=== PATIENT | male | born 1945 | race Caucasian/White ===

== ENCOUNTER 2021-12-12 10:13 | Inpatient (IN) ==
[2021-12-12] MEDS ORDERED: 0.9 % SODIUM CHLORIDE 1,000 ML IV ONE ×2 (10:40→13:53)
--- NOTE | 2021-12-12 10:40 | Emergency Department Note ---
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 He states he has had uncontrollable diarrhea for the last 3 days. He was in his wheelchair trying to cross over to a bedside commode when he landed on the ground. He states he has coccygeal pain. He denies fever, chills, body aches, nausea, vomiting, chest pain, chest pressure or shortness of breath. He denies dysuria, urgency or frequency. He states he is only had diarrhea that is been on melanotic. He has not had any change in diet and states he has not been around any contaminated water sources. He lives at home alone. She called EMS to help him get back in his wheelchair however they stated he was covered in feces as well as his bed and floor. They brought him here for further evaluation. They state he is living in rough living conditions and he states he is open to placement in a skilled facility if this can be arranged. He has no other complaints other than a sore coccyx and diarrhea. Patient has had no primary care for several years. The only medication he takes is a daily aspirin. He has not been on any medication for his diabetes or glucose control. He states he is generally a hermit and stays at home. Related Data Home Medications Medication Instructions Recorded Confirmed Adult Multi plus [place]-3 600 mg PO QDAY 12/12/21 12/12/21 Adults Multivitamin 1 tab PO QDAY 12/12/21 12/12/21 ascorbate calcium (vitamin C) 500 500 mg PO QDAY 12/12/21 12/12/21 mg tablet aspirin 650 mg PO QHS 12/12/21 12/12/21 biotin 500 mcg capsule 500 mcg PO QDAY 12/12/21 12/12/21 calcium carbonate 600 mg-vitamin 1 tab PO QDAY 12/12/21 12/12/21 D3 5 mcg (200 unit) tablet vit C-vit O-[id number]-emedpbiv-omega 1 cap PO QDAY 12/12/21 12/12/21 3 100 mg-15 unit-2 mg-100 mg capsule Allergies Allergy/AdvReac Type Severity Reaction Status Date / Time No Known Drug Allergies Allergy Verified 12/12/21 10:14 Review of Systems ROS ROS Narrative: Narrative: All systems ED: reviewed and negative except as stated. PFSH Narrative Patient History Narrative: Narrative: Medical/Surgical/Family History All Active Problems (Updated 12/12/21 @ 20:51 by Dar Baron PA-C) BPH (benign prostatic hyperplasia) (Acute) Chronic renal insufficiency, stage III (moderate) (Acute) Cardiomyopathy (Acute) Aortic stenosis (Acute) Diabetic polyneuropathy associated with type 2 diabetes mellitus (Acute) PAD (peripheral artery disease) (Acute) Diarrhea (Acute) Right above-knee amputee (Acute) T2DM (type 2 diabetes mellitus) (Acute) Diabetic nephropathy associated with type 2 diabetes mellitus (Acute) Anemia, macrocytic (Acute) Atrial fibrillation (Acute) Exam Narrative Narrative: Narrative: Gen: Patient is pale but in no acute distress and greets me as an of the room Eyes: PERRL, no conjunctival injection , and symmetrical lids. Sclerae non i cteric HENMT: Normocephalic Atraumatic head, external nose and ears. Moist MM. No teeth present Neck: Symmetric, trachea midline, CVS: +S1/S2, No murmurs or gallops. Radial pulses 2+ and equal bilat. No swelling RESP: Unlabored respiratory effort . Clear to auscultation bilaterally (CTAB). No noted wheezes rales or ronchi. GI: Nontender/Nondistended (NTND), No focal tenderness large umbilical hernia that is nontender MSK: Right below the knee amputation with stump in good condition. Chronic va scular changes of the left lower extremity with crusting and scabbing and multiple ulcers that look noninfected at this time. Patient has no sensation of the foot it is cool but perfusing with normal cap refill. Skin: Dry with lesions throughout the lower extremity cap refill less than 2. Neuro: No focal neurological deficit Psych: Awake, Alert, & Oriented (AAO) x3. Appropriate mood and affect . General Limitations: no limitations Course Vital Signs Vital signs: Vital Signs Temperature 98.6 F 12/12/21 10:16 Pulse Rate 140 H 12/12/21 10:16 Respiratory Rate 18 12/12/21 10:16 Blood Pressure 118/77 12/12/21 10:16 Pulse Oximetry (%) 97 12/12/21 10:16 Oxygen Delivery Method 12/12/21 10:16 Temperature 98.5 F 12/12/21 17:37 Pulse Rate 115 H 12/12/21 17:37 Respiratory Rate 15 12/12/21 20:10 Blood Pressure 104/77 12/12/21 16:20 Pulse Oximetry (%) 96 12/12/21 17:37 Oxygen Delivery Method 12/12/21 12:00 [facility] MDM Narrative Medical decision making narrative: Narrative: Patient is tachycardic but otherwise has normal vital signs I believe this is secondary to dehydration from diarrhea. He will be evaluated with a CBC, as well as a CMP to evaluate for electrolyte abnormality. He is pale and his H&H will be closely reviewed. Patient will also be swabbed for flu and COVID which could be the cause of diarrhea. Patient denies any fever abdominal pain, chest pain, chest pressure he also have an EKG and UA obtained. The social worker assistant wi ll meet with him to discuss placement options and see if we can arrange this for him. Patient will receive a liter of fluid for hydration. Patient's x-ray shows his aorta and common iliacs are heavily calcified his foot is cold but is still perfusing I would like to get an arterial ultrasound to further evaluate his distal blood flow. CBC: Unremarkable CMP: Acute kidney injury with renal insufficiency and creatinine of 2-1/2. Otherwise rather unremarkable Flu: Negative COVID: Negative EKG: Atrial fibrillation at a rate of 130 bpm no evidence of acute ischemia at this time. Arterial ultrasound: mid SFA and mid MELISSA no flow, likely collateral flow. everything with monophasic to dampened waveform throughout IMPRESSION: 1. Mild fusiform aneurysm infrarenal abdominal aorta maximal diameter 3.4 cm. Aorta is patent. 2. Left common iliac, external iliac and common femoral arteries are patent. The superficial femoral artery is occluded proximally with collateral reconstitution of the distal SFA. Anterior tibial artery is occluded at its midportion. There are multiple stenoses throughout the peroneal and posterior tibial artery ranging up to 70%. Interpreted and Authenticated by: Guanako Muñiz 12/12/21 [id number] Substation Mechanic: UA: Pt not yet provided Coccyx and sacrum x-ray:IMPRESSION: No fracture identified. Borderline aneurysmal enlargement infrarenal abdominal aorta. Suggest: Follow up ultrasound in one year Interpreted and Authenticated by: Guanako Muñiz 12/12/21 [facility]: Metoprolol Succinate 25mg BID, Echo, will come by and evaluate him Around 4pm Patient is in generally poor condition has not been taking medication, has no primary care lives alone cannot care for himself and is in squalor conditions. He has new onset A. fib with RVR, he needs placement to a skilled facility. Cardiology is already consulted on board. Flu and COVID were negative. He has been stable since he has been here. CBC is unremarkable, there is no white count, patient does not have a significant anemia. Patient has severe peripheral arterial disease as evidenced by the x-ray and arterial ultrasound. Mid SFA and mid MELISSA have no flow but he does likely have collateral flow but has monophasic to dampened waveforms throughout. He will need a vascular surgery or an interventional radiology referral after admission here. Dr Briseno Hospitalist: Requested 10 mg push of Cardizem and he will be down to evaluate the patient. Lab Data Result diagrams: 12/12/21 10:37 12/12/21 10:37 Labs: Lab Results 12/12/21 12/12/21 12/12/21 Range/Units 10:37 10:37 10:37 WBC 11.1 H (4.5-11.0) K/mcL RBC 3.58 L (4.63-6.08) M/mcL Hgb 11.3 L (13.7-17.5) g/dL Hct 36.1 L (40.1-51.0) % MCV 100.8 H (80.0-100.0) fL MCH 31.6 (26.0-34.0) pg MCHC 31.3 (31.0-36.0) g/dL RDW 15.0 H (11.5-14.5) % Plt Count 176 (140-440) K/mcL MPV 11.9 (8.8-12.5) fL Immature Gran % (Auto) 0.2 (0.0-0.5) % Neut % (Auto) 81.1 H (38.0-78.0) % Lymph % (Auto) 10.2 L (15.5-49.0) % Beckham % (Auto) 6.9 (1.0-12.0) % Eos % (Auto) 1.2 (0.0-7.0) % Baso % (Auto) 0.4 (0.0-2.0) % Lymph # (Auto) 1.13 L (1.50-4.80) K/mcL Beckham # (Auto) 0.77 (0.10-0.90) K/mcL Eos # (Auto) 0.13 (0.00-0.70) K/mcL Baso # (Auto) 0.04 (0.00-0.30) K/mcL Immature Gran # 0.02 (0.00-0.05) K/mcl Absolute Neutrophils 9.01 H (1.80-8.00) K/mcL Sodium 135 (133-145) mmol/L Potassium 4.1 (3.3-5.1) mmol/L Chloride 105 (96-108) mmol/L Carbon Dioxide 16 L (22-30) mmol/L Anion Gap 14.0 (8.0-16.0) BUN 22 (8-23) mg/dL Creatinine 2.5 H (0.7-1.2) mg/dL GFR Calculation 24 Glucose 145 H (70-105) mg/dL Calcium 8.4 L (8.6-10.4) mg/dL Total Bilirubin 0.4 (0.1-1.0) mg/dL AST 24 (<40) U/L ALT 25 (<40) U/L Alkaline Phosphatase 111 (39-117) U/L Total Creatine Kinase 220 H (24-195) U/L Total Protein 5.8 L (5.9-8.4) gm/dL Albumin 3.0 L (3.2-5.2) gm/dL Globulin 2.8 (2.2-3.7) gm/dL Albumin/Globulin Ratio 1.1 (1.0-2.3) ED POC Tests ED POC Tests: АЛЕКСАНДР - Influenza A Negative АЛЕКСАНДР - Influenza B Negative АЛЕКСАНДР - SARS Antigen Negative Discharge Plan Patient/Caregiver Discharge Instructions Pt seen by DOOR LINER/PA only: Yes Clinical Impression: Atrial fibrillation Patient Disposition: Xfer As Inpt ([facility]) Discharge Date/Time: 12/12/21 17:03
[2021-12-12 11:29] LABS: Basophils # (Auto) 0.04 K/mcL (0.00-0.30); Basophils % (Auto) 0.4 % (0.0-2.0); Eosinophils # (Auto) 0.13 K/mcL (0.00-0.70); Eosinophils % (Auto) 1.2 % (0.0-7.0); Hematocrit 36.1 % (40.1-51.0); Hemoglobin 11.3 g/dL (13.7-17.5); Lymphocytes # (Auto) 1.13 K/mcL (1.50-4.80); Lymphocytes % (Auto) 10.2 % (15.5-49.0); Mean Cell Volume 100.8 fL (80.0-100.0); Mean Corpuscular HGB Conc 31.3 g/dL (31.0-36.0); Mean Platelet Volume 11.9 fL (8.8-12.5); Monocytes # (Auto) 0.77 K/mcL (0.10-0.90); Monocytes % (Auto) 6.9 % (1.0-12.0); Neutrophils % (Auto) 81.1 % (38.0-78.0); Platelet Count 176 K/mcL (140-440); RBC 3.58 M/mcL (4.63-6.08); WBC 11.1 K/mcL (4.5-11.0)
[2021-12-12] MEDS ORDERED: METOPROLOL SUCCINATE 25 MG TAB.XL.24H PO ONE (11:29)
[2021-12-12 11:42] LABS: ALT/SGPT 25 U/L (<40); AST/SGOT 24 U/L (<40); Albumin/Globulin Ratio 1.1 (1.0-2.3); Alkaline Phosphatase 111 U/L (39-117); Bilirubin,Total 0.4 mg/dL (0.1-1.0); Blood Urea Nitrogen 22 mg/dL (8-23); Calcium 8.4 mg/dL (8.6-10.4); Carbon Dioxide 16 mmol/L (22-30); Chloride 105 mmol/L (96-108); Globulin 2.8 gm/dL (2.2-3.7); Glomerular Filtration Rate 24; Glucose 145 mg/dL (70-105)
--- NOTE | 2021-12-12 12:37 | XRay Report ---
CLINICAL INFORMATION: Trauma COMPARISON: None. FINDINGS: Sacroiliac and hip joints show mild degeneration.. There is no fracture or osseous abnormality. Heavy atherotic calcification seen in the aortoiliac and femoral arteries. Borderline aneurysmal enlargement of the infrarenal abdominal aorta appreciated: 3 cm uncorrected for magnification. IMPRESSION: No fracture identified. Borderline aneurysmal enlargement infrarenal abdominal aorta. Suggest: Follow up ultrasound in one year Interpreted and Authenticated by: Guanako Muñiz 12/12/21
--- NOTE | 2021-12-12 12:54 | Ultrasound Report ---
CLINICAL INFORMATION: Left leg pain history of diabetes and smoking COMPARISON: None. FINDINGS: See attached sheet. IMPRESSION: 1. Mild fusiform aneurysm infrarenal abdominal aorta maximal diameter 3.4 cm. Aorta is patent. 2. Left common iliac, external iliac and common femoral arteries are patent. The superficial femoral artery is occluded proximally with collateral reconstitution of the distal SFA. Anterior tibial artery is occluded at its midportion. There are multiple stenoses throughout the peroneal and posterior tibial artery ranging up to 70%. Interpreted and Authenticated by: Guanako Muñiz 12/12/21
[2021-12-12] MEDS ORDERED: DILTIAZEM 25 MG/5 ML VIAL IV ONE (13:32)
--- NOTE | 2021-12-12 13:48 | EKG ---
[facility] Minor Care Test Date: 2021-12-12 Pat Name: Vinicio Knight Department: ED Room: Gender: Male Dependency Case Manager: MALCOLM : 1945 Requested By: Dar Baron Order Number: [id number] Reading MD: Mulu Emmanuel Measurements Intervals [place] Rate: 130 P: HI: QRS: -6 QRSD: 88 T: 194 QT: 299 QTc: 440 Interpretive Statements Atrial fibrillation with ventricular ectopic beats Low voltage, extremity leads Possible septal infarct age indeterminate Nonspecific repol abnormality, diffuse leads Electronically Signed On 12-12-2021 13:47:48 PDT by Mulu Emmanuel /store/M0/[id number]/[id number]
--- NOTE | 2021-12-12 15:55 | Cat Scan Report ---
CLINICAL INFORMATION: Diarrhea COMPARISON: None. TECHNIQUE: 0.625 mm helical slices were obtained from the mid heart through the subtrochanteric regions. Following reconstruction, 2.5 mm sagittal, coronal and axial reformatted images were processed and reviewed at bone and soft tissue windows.The exam was performed using radiation dose optimization techniques including, but not limited to, automated exposure control, adjustment of the mA and/or kV according to patient size and use of iterative reconstruction technique. FINDINGS: The lung bases show moderate bilateral pleural effusions resulting in subsegmental compressive atelectasis of the posterior lower lobes. The heart is moderately enlarged with very heavy calcific plaque in the coronary arteries. There is also moderate calcification in the aortic valve. Abdominal images show the noncontrasted liver is unremarkable. There are multiple small (greater than 20) stones in the gallbladder neck. Gallbladder wall is slightly thickened which could indicate cholecystitis. Intrahepatic and common bile ducts are normal caliber: CBD is 5 mm. The noncontrasted pancreas and spleen are normal. The aorta is normal diameter but is riddled with extremely heavy calcific plaque. Left kidney is at lower limits of normal in size: 9 cm. Right kidney is normal size 10.3 cm. Scattered low-attenuation lesions throughout the kidneys also likely cysts. They range up to 3 cm the parapelvic region of the left kidney. Consider ultrasound to be certain all are cysts. The upper collecting systems and ureters are grossly normal. Pelvic images show mild prostate enlargement: 4 cm diameter. Mild diffuse wall thickening urinary bladder suggests chronic bladder outlet narrowing due to enlarged prostate. Multiple sigmoid diverticula appreciated but no evidence of diverticulitis. The remaining large bowel, retrocecal appendix, small bowel and stomach are normal. A 7 cm periumbilical hernia contains only mesenteric fat. There is mild edema in the hernia sac. There is also mild edema throughout the retroperitoneum and mesenteric fat. Edema throughout the abdomen and pelvis subcutaneous fat. Bone windows show degeneration lumbar spine, but no focal osseous lesion. IMPRESSION: 1. Moderate bilateral pleural effusion resulting in compressive atelectasis of the adjacent posterior lower lobes. There is also moderate edema throughout the mesenteric, retroperitoneal fat and the subcutaneous fat of the abdomen and pelvis. This is typically due to chronic congestive heart failure. Please correlate with chest x-ray. 2. Cholelithiasis. Mild wall thickening of the gallbladder suggests the possibility of associated cholecystitis. 3. Multiple low-attenuation lesions within the kidney are all likely cysts. Consider renal ultrasound. 4. Heavy calcific plaque in the abdominal aorta with mild ectasia in the infrarenal segment. 5. 7 cm periumbilical hernia containing only mesenteric fat. Edema in the hernia sac could indicate inflammation or ischemia. Please correlate with pain in this region. 6. Sigmoid diverticulosis, but no evidence of diverticulitis. 7. Mild prostate enlargement Interpreted and Authenticated by: Guanako Muñiz 12/12/21
--- NOTE | 2021-12-12 15:57 | Internal Med History&Physical ---
HPI History of Present Illness Patient information: Note initiated : 12/12/21 at 3:49 pm Service Date, if different from initiated Date: [] Patient: Vinicio Knight a 76 y/o M admitted on for Weakness, Failure to thrive. Chief Complaint: [weakness] Chief complaint: weakness History of present illness: Mr. Knight is a 76 year old M history of type 2 diabetes, right-sided AKA, presenting with weakness. He has been having diarrhea for 3 days and earlier today at around 10 AM when he was trying to get up from the wheelchair, the wheelchair tipped to the cushion and he felt to the ground. He was unable to get up from the ground. He did not pass out no loss of consciousness. Denies any chest pain or palpitations or shortness of breath. He called EMS to be sent to our ED for further evaluation and treatments. Vital sign significant for tachycardia with heart rate in the 130s, and atrial fibrillation's. Soft blood pressure as low as 83/68 mmHg. Labs significant for a mildly elevated WBC of 11.1. H&H 11.1 and 36.1, respectively. Serum creatinine level 2.5 unknown baseline. Glucose level 145. Status post IV Lopressor and IV Cardizem pushes in the ED, respectively. Current heart rate lingering between 80s and 100s beats per minute. Constitutional Constitutional: Present weakness; Absent chills, excessive sweating, fatigue or fever(s) EENT Eyes: Absent blurry vision, change in vision, loss of vision or other visual disturbances Ears: Absent decreased hearing or tinnitus Nose, mouth and throat: Absent abnormal hearing, dry mouth, headache(s), nasal congestion or sore throat Cardiovascular Cardiovascular: Absent chest pain, chest pain at rest, edema, irregular heart rhythm or palpatations Respiratory Respiratory: Absent cough, dyspnea or wheezing Gastrointestinal Gastrointestinal: Present diarrhea; Absent abdominal pain, constipation, nausea or vomiting Musculoskeletal Musculoskeletal: Absent back pain, deformity, limited range of motion, muscle cramps, muscle weakness or numbness Integumentary Integumentary: Absent lesions, rash or wounds Neurological Neurological: Absent focal weakness, headache(s) or numbness Psychiatric Psychiatric: Absent anxiety, depression or hallucinations PFSH PFSH All Active Problems (Updated 12/12/21 @ 16:06 by Delbert Briseno MD) Diabetic polyneuropathy associated with type 2 diabetes mellitus (Acute) PAD (peripheral artery disease) (Acute) Diarrhea (Acute) Right above-knee amputee (Acute) T2DM (type 2 diabetes mellitus) (Acute) Diabetic nephropathy associated with type 2 diabetes mellitus (Acute) Anemia, macrocytic (Acute) Atrial fibrillation (Acute) MEDS/ALLERGIES Home Medications and Allergies Home Medications Medication Instructions Recorded Confirmed Type No Known Home Meds 12/12/21 12/12/21 History Allergies Allergy/AdvReac Type Severity Reaction Status Date / Time No Known Drug Allergies Allergy Verified 12/12/21 10:14 EXAM Constitutional Vitals: Temp Pulse Resp BP Pulse Ox O2 Del Method 37.0 C 115 H 19 91/70 98 12/12/21 10:16 12/12/21 15:20 12/12/21 15:20 12/12/21 15:20 12/12/21 15:20 12/12/21 12:00 General appearance: cooperative and no acute distress Head Head exam: Present atraumatic and normocephalic Eye Eye exam: Present EOMI and PERRL ENT ENT exam: Present mucous membranes moist, normal exam and normal external ear exam Neck Neck exam: Present normal inspection; Absent lymphadenopathy, tenderness or thyromegaly Respiratory Respiratory exam: Absent accessory muscle use, respiratory distress or wheezes Cardiovascular Cardiovascular exam: Present irregular rhythm and tachycardia; Absent JVD GI/Abdominal GI/Abdominal exam: Present normal bowel sounds and soft; Absent organomegaly or tenderness Rectal Rectal exam: Present deferred Extremities Exam Extremities exam: Present full ROM and normal capillary refill; Absent normal inspection or tenderness Additional comments: Right AKA Neurological Exam Neurological exam: Present alert, CN II-XII intact and oriented X3; Absent motor sensory deficit Psychiatric Psychiatric exam: Present normal affect and normal mood; Absent anxious or depressed Skin Skin exam: Present dry, erythema and rash; Absent intact Additional comments: Of traumatic left lower legs with multiple ulcers in different stages of healing DATA Data Completed and Pending Labs: Labs from last 24 hours 12/12/21 12/12/21 10:37 10:37 WBC 11.1 H RBC 3.58 L Hgb 11.3 L Hct 36.1 L MCV 100.8 H MCH 31.6 MCHC 31.3 RDW 15.0 H Plt Count 176 MPV 11.9 Immature Gran % (Auto) 0.2 Neut % (Auto) 81.1 H Lymph % (Auto) 10.2 L Elbert % (Auto) 6.9 Eos % (Auto) 1.2 Baso % (Auto) 0.4 Lymph # (Auto) 1.13 L Elbert # (Auto) 0.77 Eos # (Auto) 0.13 Baso # (Auto) 0.04 Immature Gran # 0.02 Absolute Neutrophils 9.01 H Sodium 135 Potassium 4.1 Chloride 105 Carbon Dioxide 16 L Anion Gap 14.0 BUN 22 Creatinine 2.5 H GFR Calculation 24 Glucose 145 H Calcium 8.4 L Total Bilirubin 0.4 AST 24 ALT 25 Alkaline Phosphatase 111 Total Protein 5.8 L Albumin 3.0 L Globulin 2.8 Albumin/Globulin Ratio 1.1 A/P Assessment and plan (1) Atrial fibrillation: Status: Acute (2) Anemia, macrocytic: Status: Acute (3) Diabetic nephropathy associated with type 2 diabetes mellitus: Status: Acute (4) T2DM (type 2 diabetes mellitus): Status: Acute (5) Right above-knee amputee: Status: Acute (6) Diarrhea: Status: Acute (7) PAD (peripheral artery disease): Status: Acute (8) Diabetic polyneuropathy associated with type 2 diabetes mellitus: Status: Acute Narrative A/P Narrative: Assessment and Plans: 1. Atrial fibrillation: Inpatient PCU with telemetry [id number] score of 4, Eliquis Cardizem SR 30mg PO QID Lopressor 5mg IV q5min PRN HR>120bpm, hold if SBP<90 and/or DBP<50mmHg 2D echocardiogram 2. Peripheral arterial disease: Need vascular surgery outpatient follow up for elective angiography and any other indicated procedures 3. T2DM with associated polyneuropathy and nephropathy: HgA1c Hold any oral hypoglycemics Accu Chek AC HS Insulin Lispor SSI AC HS Hypoglycemia protocol Diabetic diet Avoid nephrotoxic agents NS@100cc/hr CMP in the morning to trend kidney functions 4. Diarrhea: C diff toxin PCR CT abdomen pelvis w/o NS@100cc/hr for rehydration purposes 5. Anemia associated with chronic kidney disease: cbc w/ auto diff daily to trend H/H GI ppx: not currently indicated DVT ppx: Eliquis Code status: Full Prognosis: guarded Disposition: inpatient PCU; PT OT Time Spent With Patient Time: Total time spent is greater than 50% in coordination of care (as documented) at patient's floor/unit and/or counseling patient: Total time spent with greater than 50% in coordination of care (as documented) at patient's floor/unit and/or counseling patient:: 50 - 70 minutes
--- NOTE | 2021-12-12 16:40 | XRay Report ---
CLINICAL INFORMATION: Atrial fibrillation shortness of breath COMPARISON: 04/09/2010 TECHNIQUE: Portable FINDINGS: The heart is mildly enlarged. Mediastinum is unremarkable. Pulmonary vessels are mildly distended and there is mild residual edema throughout both lungs. Moderate bilateral pleural effusions noted with moderate bibasilar airspace disease likely atelectasis. IMPRESSION: Moderate CHF Moderate bilateral pleural effusions with moderate bibasilar airspace disease likely atelectasis Interpreted and Authenticated by: Guanako Muñiz 12/12/21
--- NOTE | 2021-12-12 16:41 | Cardiology Consult Note ---
HPI History of Present Illness Patient information: Note initiated : 12/12/21 at 3:35 pm Service Date, if different from initiated Date Patient: Vinicio Knight a 76 y/o M admitted on for Weakness, Failure to thrive. Chief Complaint: [atrial fibrillation] This is a very pleasant 76 year old white male admitted through the for weakness and diarrhea. He was suffered from general weakness for several weeks and suddenly experienced explosive diarrhea intermittently over the last several days. He had a history of uncontrolled type II diabetes and is currently not managed on any medication and is not seeing a primary. 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 Recent doppler done today revealed multiple 70% lesion to left lower extremities arterial vessels. He fell when transferring himself from the bed to a commode. He does have a prosthesis for his right BKA but has not been using it for ambulation because he needs another person to help. He was noted to be in atrial fibrillation with rates as high as 140 beats per minutes. His creatinine is 2.4, but BUN is normal. He was given IV fluids and one dose of metoprolol at 25mg, his blood pressures have running 100 systolic. His preliminary echo shows an EF of 20% with global hypokinesis and moderate to severe aortic stenosis, with moderate mitral regurgitation. Patient is unaware of any history of afib, aortic stenosis or renal failure. He has a had a problem with his prostate and struggles with urination and must urinate small amounts. He denies any history of palpitations, chest pain, or syncope. He has not describe any orthopnea, peripheral edema, of dizziness. He has no history of NE or stroke. He does not know his lipid status. Chief complaint: atrial fibrillation, aortic stenosis, and systolic heart failure History of present illness: Mr. Knight is a 76 year old M Constitutional Constitutional: Present anorexia, fatigue, frequent falls, lethargy, malaise, weakness and weight loss; Absent chills, daytime sleepiness, excessive sweating, fever(s), headache(s), night sweats or weight gain EENT Eyes: Absent blind spots, blurry vision, change in vision, diplopia or floaters Nose, mouth and throat: Absent dizziness, dysphagia or headache(s) Cardiovascular Cardiovascular: Present leg ulcers; Absent chest pain, chest pain at rest, dyspnea, dyspnea on exertion, edema, leg edema, lightheadedness, orthopnea, palpatations, paroxysmal nocturnal dyspnea, pedal edema, rapid heart rate or slow heart rate Respiratory Respiratory: Present chest congestion; Absent cough, dyspnea, hemoptysis, dysp latrice on exertion, wheezing or excessive phlegm production Gastrointestinal Gastrointestinal: Present cramping, diarrhea, dyspepsia and loose stools; Absent abdominal pain, belching, coffee ground emesis, dysphagia, heartburn, hematemesis, melena, nausea or vomiting Genitourinary Genitourinary: change in urinary stream, difficulty urinating and flank pain Musculoskeletal Musculoskeletal: Present abnormal gait, arthralgias, muscle cramps, muscle weakness, myalgias, numbness and tingling Integumentary Integumentary: Present bleeding lesions, dry skin and lesions Neurological Neurological: Present abnormal gait, paresthesias, sensory deficit and weakness; Absent abnormal speech, confusion, dizziness, headache(s), lack of coordination, memory loss or syncope Psychiatric Psychiatric: Absent anxiety, hallucinations or irritability Endocrine Endocrine: Present fatigue; Absent palpitations Hematologic/Lymphatic Hematologic/Lymphatic: Absent easy bleeding PFSH PFSH All Active Problems (Updated 12/12/21 @ 16:41 by ERYN Zaldivar) BPH (benign prostatic hyperplasia) (Acute) Chronic renal insufficiency, stage III (moderate) (Acute) Cardiomyopathy (Acute) Aortic stenosis (Acute) Diabetic polyneuropathy associated with type 2 diabetes mellitus (Acute) PAD (peripheral artery disease) (Acute) Diarrhea (Acute) Right above-knee amputee (Acute) T2DM (type 2 diabetes mellitus) (Acute) Diabetic nephropathy associated with type 2 diabetes mellitus (Acute) Anemia, macrocytic (Acute) Atrial fibrillation (Acute) MEDS/ALLERGIES Home Medications and Allergies Home Medications Medication Instructions Recorded Confirmed Type No Known Home Meds 12/12/21 12/12/21 History Allergies Allergy/AdvReac Type Severity Reaction Status Date / Time No Known Drug Allergies Allergy Verified 12/12/21 10:14 Physical Examination Vital Signs Vital Signs: Temp Pulse Resp BP Pulse Ox O2 Del Method 98.6 F 115 H 19 91/70 98 12/12/21 10:16 12/12/21 15:20 12/12/21 15:20 12/12/21 15:20 12/12/21 15:20 12/12/21 12:00 Physical Examination General: Present Cachectic HEENT: Present Pallor, PERRL and Normocephaly Neck: Present Supple Neck and No Bruit; Absent No JVD/HJR, Adenopathy or No Lymphadenopathy Cardiac: Present Irregularly Regular, Systolic Murmur, Gallop and PMI (PMI laterally displaced) Lungs: Present Decreased Breath Sounds Neuro: Present Cranial Nerve 2-12 Intact, Numbness and Sensory Function Intact Abdomen: Present Soft, Active Bowel Sounds and No Masses Skin: Present Suspicious Lesions and Other (multiple healing ulcers left lower extemity with delayed capillary refill, absent pulses Right BKA) Extremities: Present Cold and Capillary Refill; Absent +1 Edema or Clubbing Results Labs and Meds Result diagrams: 12/12/21 10:37 12/12/21 10:37 Lab results: Cardiac Enzymes 12/12/21 Range/Units 10:37 AST 24 (<40) U/L CBC 12/12/21 Range/Units 10:37 WBC 11.1 H (4.5-11.0) K/mcL RBC 3.58 L (4.63-6.08) M/mcL Hgb 11.3 L (13.7-17.5) g/dL Hct 36.1 L (40.1-51.0) % Plt Count 176 (140-440) K/mcL Lymph # (Auto) 1.13 L (1.50-4.80) K/mcL [place] # (Auto) 0.77 (0.10-0.90) K/mcL Eos # (Auto) 0.13 (0.00-0.70) K/mcL Baso # (Auto) 0.04 (0.00-0.30) K/mcL Comprehensive Metabolic Panel 12/12/21 Range/Units 10:37 Sodium 135 (133-145) mmol/L Potassium 4.1 (3.3-5.1) mmol/L Chloride 105 (96-108) mmol/L Carbon Dioxide 16 L (22-30) mmol/L BUN 22 (8-23) mg/dL Creatinine 2.5 H (0.7-1.2) mg/dL Glucose 145 H (70-105) mg/dL Calcium 8.4 L (8.6-10.4) mg/dL AST 24 (<40) U/L ALT 25 (<40) U/L Alkaline Phosphatase 111 (39-117) U/L Total Protein 5.8 L (5.9-8.4) gm/dL Albumin 3.0 L (3.2-5.2) gm/dL Intake and Output 12/12/21 12/12/21 12/12/21 05:59 13:59 21:59 Intake Total 1000 Balance 1000 Intake: IV 1000 Sodium Chloride 0.9% 1,000 ml @ 1000 Wide Open IV [facility] Rx#: [id number] Other: Weight 65.771 kg Patient Weight 12/13/21 05:59 Weight 65.771 kg Imaging and Cardiology Imaging Narrative: Narrative: Echo: pending EKG results: report reviewed EKG interpretations EKG Interpretation: 12 lead EKG shows atrial fibrillation with RVR with loss of R wave in anterior leads and poor wave progression with nonspecific EKG changes A/P Assessment and plan (1) Aortic stenosis: Status: Acute (2) Cardiomyopathy: Status: Acute (3) Chronic renal insufficiency, stage III (moderate): Status: Acute (4) BPH (benign prostatic hyperplasia): Status: Acute Narrative A/P Narrative: 1. atrial fibrillation with RVR 2. renal insufficiency- possible acute on chronic 3. Aortic stenosis- moderate to severe 4. mitral regurgitation 5. chronic systolic heart failure-likely a combination related to valvular heart disease and tachycardia mediated 6. poorly controlled diabetes 7. peripheral vascular disease with poor healing ulcer left leg and prior Right BKA 8. BPH Plan: start eliquis 2.5mg twice daily doppler of kidneys to evaluate for hydronephosis and possible obstructive uropathy CXR to evaluate for any CHF start metoprolol succinate 12.5 mg q 6 hours for better rate control of atrial fibrillation start high dose statin clinically no signs of decompensated heart failure. will need PT and possible ECF placement. I will be by to see him tomorrow, by then we should have official echocardiogram read. consider stress test to evaluate for ischemia as an outpatient, will schedule him to see Dr. Heredia 3-4 weeks. not sure his candidacy for TAVR. will recheck bmp in a.m. to see if creatinine improves but suspect renal failure is chronic from diabetes and PVD as well as cardiorenal syndrome. Plan of Treatment: metoprolol 12.5mg Q 6 hours. check renal doppler start elqiuis 2.5 twice daily needs PT placement outpatient follow up with Dr. Isaías Heredia consider ischemic work up at a later date Time Spent With Patient Time: Total time spent is greater than 50% in coordination of care (as documented) at patient's floor/unit and/or counseling patient: Total time spent with greater than 50% in coordination of care (as documented) at patient's floor/unit and/or counseling patient:: 50 - 70 minutes
[2021-12-12] MEDS ORDERED: METOPROLOL SUCCINATE 25 MG TAB.XL.24H PO SCH (17:00)
[2021-12-12] MEDS ORDERED: DEXTROSE 31 GM ORAL.SUSP PO PRN (17:06)
[2021-12-12] MEDS ORDERED: IBUPROFEN 600 MG TABLET PO PRN (17:06)
[2021-12-12] MEDS ORDERED: ACETAMINOPHEN 325 MG TABLET PO PRN (17:06)
[2021-12-12] MEDS ORDERED: IPRATROPIUM/ALBUTEROL 3 ML AMPUL.NEB NEB PRN (17:06)
[2021-12-12] MEDS ORDERED: ONDANSETRON 4 MG/2 ML VIAL IV PRN (17:06)
[2021-12-12] MEDS ORDERED: DEXTROSE 50% 50 ML VIAL IV PRN (17:06)
[2021-12-12] MEDS ORDERED: METOPROLOL TARTRATE 5 MG/5 ML VIAL IV PRN (17:06)
[2021-12-12] MEDS ORDERED: oxyCODONE HCL 5 MG TABLET PO PRN (17:06)
[2021-12-12] MEDS: DILTIAZEM 30 MG TABLET PO SCH ×2 (17:25→20:46)
[2021-12-12] MEDS: 0.9 % SODIUM CHLORIDE 1,000 ML IV SCH (17:25)
[2021-12-12] MEDS: INSULIN LISPRO 1 UNIT/0.01 ML UNIT SQ SCH ×2 (17:29→20:47)
[2021-12-12] MEDS: APIXABAN 5 MG TABLET PO SCH (20:46)
[2021-12-12] MEDS ORDERED: APIXABAN 5 MG TABLET PO SCH (21:00)
[2021-12-12] MEDS: traZODone HCL 50 MG TABLET PO PRN (21:00)
[2021-12-12] MEDS: 0.9 % SODIUM CHLORIDE 10 ML SYRINGE IV SCH (22:45)
[2021-12-13] MEDS: 0.9 % SODIUM CHLORIDE 1,000 ML IV SCH ×2 (03:27→13:39)
--- NOTE | 2021-12-13 03:42 | Ultrasound Report ---
CLINICAL INFORMATION: Low attenuation lesions on CT evaluate for cysts COMPARISON: Abdomen and pelvic CT 12/12/2021 FINDINGS: Right kidney is mildly atrophic spanning 8.4 x 5.8 cm. Left kidney is normal size: 10.3 x 5.7 cm. Both kidneys are mildly hyperechoic. Multiple cysts are widely disseminated throughout both kidneys. The largest 3.6 cm and the superior parapelvic region of the left kidney. There are no solid masses two suggest renal cell carcinoma. No hydronephrosis or stone. Urinary bladder volume 134 cc. No focal bladder lesions. Patient was unable to void. IMPRESSION: 1. Multiple cysts throughout both kidneys. No solid lesions. 2. Mild atrophy of the right kidney. Left kidney normal. There is moderate calcific plaque in the right renal artery on CT. Suspect patient may have renal artery stenosis. CT was performed without contrast, thus this cannot be diagnosed with certainty on that exam. 3. Mildly hyperechoic kidneys compatible with medical renal disease and advanced age Interpreted and Authenticated by: Guanako Muñiz 12/13/21
[2021-12-13] MEDS: 0.9 % SODIUM CHLORIDE 10 ML SYRINGE IV SCH ×3 (05:14→21:34)
[2021-12-13 07:04] LABS: Basophils # (Auto) 0.02 K/mcL (0.00-0.30); Basophils % (Auto) 0.2 % (0.0-2.0); Eosinophils # (Auto) 0.06 K/mcL (0.00-0.70); Eosinophils % (Auto) 0.7 % (0.0-7.0); Hematocrit 34.6 % (40.1-51.0); Hemoglobin 10.6 g/dL (13.7-17.5); Lymphocytes # (Auto) 0.81 K/mcL (1.50-4.80); Lymphocytes % (Auto) 9.4 % (15.5-49.0); Mean Cell Volume 101.2 fL (80.0-100.0); Mean Corpuscular HGB Conc 30.6 g/dL (31.0-36.0); Monocytes # (Auto) 0.69 K/mcL (0.10-0.90); Neutrophils % (Auto) 81.4 % (38.0-78.0); Platelet Count 154 K/mcL (140-440); RBC 3.42 M/mcL (4.63-6.08); Red Cell Distribution Width 15.2 % (11.5-14.5); WBC 8.6 K/mcL (4.5-11.0)
[2021-12-13 07:22] LABS: ALT/SGPT 19 U/L (<40); AST/SGOT 18 U/L (<40); Albumin 2.8 gm/dL (3.2-5.2); Albumin/Globulin Ratio 1.3 (1.0-2.3); Alkaline Phosphatase 95 U/L (39-117); Bilirubin,Total 0.3 mg/dL (0.1-1.0); Blood Urea Nitrogen 25 mg/dL (8-23); Calcium 7.9 mg/dL (8.6-10.4); Carbon Dioxide 15 mmol/L (22-30); Chloride 111 mmol/L (96-108); Globulin 2.2 gm/dL (2.2-3.7); Glomerular Filtration Rate 26; Glucose 139 mg/dL (70-105); Phosphorous 4.5 mg/dL (2.5-4.5)
[2021-12-13] MEDS: INSULIN LISPRO 1 UNIT/0.01 ML UNIT SQ SCH ×4 (07:52→23:36)
[2021-12-13] MEDS ORDERED: FISH OIL 1,000 MG CAPSULE PO SCH (09:00)
[2021-12-13] MEDS ORDERED: BIOTIN 500 MCG PO SCH (09:00)
[2021-12-13] MEDS ORDERED: ASCORBIC ACID 500 MG TABLET PO SCH (09:00)
[2021-12-13] MEDS ORDERED: CALCIUM W/VIT D3 500 MG TABLET PO SCH (09:00)
[2021-12-13] MEDS ORDERED: VIT C VIT E LUTEIN MIN OM PO SCH (09:00)
[2021-12-13] MEDS ORDERED: [UNRECOGNIZED DRUG - OTHER] PO SCH (09:00)
[2021-12-13] MEDS ORDERED: MULTIVIT,THER IRON,CA,FA & MIN 1 TABLET PO SCH (09:00)
[2021-12-13] MEDS ORDERED: FUROSEMIDE 20 MG/2 ML VIAL IV ONE (09:08)
[2021-12-13] MEDS: APIXABAN 5 MG TABLET PO SCH ×2 (09:16→21:33)
[2021-12-13] MEDS: DILTIAZEM 30 MG TABLET PO SCH ×2 (10:15→14:17)
[2021-12-13 13:58] LABS: Appearance,Urine CLEAR (Clear); Bilirubin,Urine Negative (Negative); Color,Urine YELLOW; Culture Indicated,Urine No; Glucose,Urine (UA) Negative (Negative); Ketones,Urine Negative (Negative); Leukocyte Esterase,Urine Negative /uL (Negative); Mucus,Urine FEW /hpf; Nitrate,Urine Negative (Negative); Protein,Urine 30 mg/dL (Negative); Specific Gravity,Urine 1.017 (1.000-1.035); Urine Blood Negative (Negative); Urine Granular Cast 1 /lph (0-0); Urine Hyaline Cast 38 /lph (0-2); Urine RBC 9 /hpf (0-3); Urine Squamous Epithelial Cell 0 /hpf (0-4); Urine Transitional Epi Cells < 1 /hpf (0-2); Urine WBC 6 /hpf (0-4); Urobilinogen,Urine Negative
--- NOTE | 2021-12-13 14:55 | Internal Med Progress Note ---
SUBJECTIVE Subjective Patient information: Note initiated : 12/13/21 at 2:51 pm Service Date, if different from initiated Date: [] Patient: Vinicio Knight a 76 y/o M admitted on 12/12/21 for Weakness, Failure to thrive/ A-Fib and leg wound. Chief Complaint: [] Interval history: Mr. Knight is a 76 year old M history of type 2 diabetes, right-sided AKA, presenting with weakness. He has been having diarrhea for 3 days and earlier today at around 10 AM when he was trying to get up from the wheelchair, the wheelchair tipped to the cushion and he felt to the ground. He was unable to get up from the ground. He did not pass out no loss of consciousness. Denies any chest pain or palpitations or shortness of breath. He called EMS to be sent to our ED for further evaluation and treatments. Vital sign significant for tachycardia with heart rate in the 130s, and atrial fibrillation's. Soft blood pressure as low as 83/68 mmHg. Labs significant for a mildly elevated WBC of 11.1. H&H 11.1 and 36.1, respectively. Serum creatinine level 2.5 unknown baseline. Glucose level 145. Status post IV Lopressor and IV Cardizem pushes in the ED, respectively. Current heart rate lingering between 80s and 100s beats per minute. 12/13: With no major overnight events. Patient is currently rate controlled. Patient denies any chest pain palpitations or shortness of breath. He is comfortable and denies any pain. Convert Cardizem to metoprolol tart Santana 12.5 p.o. every 6 hours. Continue Eliquis. Add Lipitor. Pending echocardiogram report. Pending physical therapy and Occupational Therapy for placement planning. Will need outpatient car diology follow-up. Constitutional Vitals: Vital Signs Temp Pulse Resp BP Pulse Ox O2 Del Method 36.1 C L 78 20 106/71 96 12/13/21 12:01 12/13/21 06:37 12/13/21 12:49 12/13/21 12:49 12/13/21 12:49 12/13/21 04:02 Period Temp Pulse Resp BP Sys/Ocampo Pulse Ox O2 Del Method O2 Flow Rate Last 24 Hr 36.1 C-37.1 C 78-123 01-12 71-112/52-86 90-98 Room Air-Room Air Intake and Output 12/13/21 12/13/21 12/13/21 05:59 13:59 21:59 Intake Total 1000 1000 Output Total 250 Balance 1000 750 Intake & Output: Intake & Output 12/13/21 12/13/21 12/13/21 05:59 13:59 21:59 Intake Total 1000 1000 Output Total 250 Balance 1000 750 Intake: IV 1000 1000 Sodium Chloride 0.9% 1,000 ml @ 1000 1000 100 mls/hr IV .Q10H [facility] Rx#: [id number] Output: Void Amount 250 Other: Urine Appearance Clear Urine Color Dark Eliz Urine Odor Normal Head Head exam: Present atraumatic and normal inspection Eye Eye exam: Present normal appearance ENT ENT exam: Present mucous membranes moist, normal exam and normal external ear exam Neck Neck exam: Present normal inspection Respiratory Respiratory exam: Present normal respiratory exam Cardiovascular Cardiovascular exam: Present irregular rhythm GI/Abdominal GI/Abdominal exam: Present normal bowel sounds Extremities Exam Extremities exam: Present full ROM; Absent normal inspection Additional comments: Right AKA Back Exam Back exam: Present normal inspection Neurological Exam Neurological exam: Present alert and oriented X3 Skin Skin exam: Present intact and warm OBJ DATA Labs CBC & Chem 7: 12/13/21 05:30 12/13/21 05:30 Labs: Abnormal Lab Results 12/13/21 12/13/21 12/13/21 11:37 05:30 05:30 WBC RBC 3.42 L Hgb 10.6 L Hct 34.6 L MCV 101.2 H MCHC 30.6 L RDW 15.2 H Neut % (Auto) 81.4 H Lymph % (Auto) 9.4 L Lymph # (Auto) 0.81 L Absolute Neutrophils Chloride 111 H Carbon Dioxide 15 L BUN 25 H Creatinine 2.3 H Glucose 139 H Calcium 7.9 L Total Creatine Kinase Total Protein 5.0 L Albumin 2.8 L Urine Protein 30 A Urine RBC 9 H Urine WBC 6 H Hyaline Casts 38 H Granular Casts 1 H Urine Mucus Few A 12/12/21 12/12/21 12/12/21 10:37 10:37 10:37 WBC 11.1 H RBC 3.58 L Hgb 11.3 L Hct 36.1 L MCV 100.8 H MCHC RDW 15.0 H Neut % (Auto) 81.1 H Lymph % (Auto) 10.2 L Lymph # (Auto) 1.13 L Absolute Neutrophils 9.01 H Chloride Carbon Dioxide 16 L BUN Creatinine 2.5 H Glucose 145 H Calcium 8.4 L Total Creatine Kinase 220 H Total Protein 5.8 L Albumin 3.0 L Urine Protein Urine RBC Urine WBC Hyaline Casts Granular Casts Urine Mucus Meds: Medications Acetaminophen (Acetaminophen 325 Mg Tablet) 650 mg PO Q6HP PRN; Protocol PRN Reason: Per Pain Protocol/Fever > 101 Albuterol/Ipratropium (Ipratropium/Albuterol 3 Ml Ampul.Neb) 3 ml NEB Q4HRT PRN PRN Reason: Wheezing Apixaban (Apixaban 5 Mg Tablet) 5 mg PO BID MARK Aspirin (Aspirin 325 Mg Enteric Coated Tablet) 650 mg PO QHS MARK Atorvastatin Calcium (Atorvastatin 40 Mg Tablet) 40 mg PO HS MARK Dextrose (Dextrose 50% 50 Ml Vial) 0 ml IV UD PRN PRN Reason: Per Sliding Scale Diagnostic Test (Pha) (Accu-Chek 1 Each Strip) 1 each FS ACHS [facility] Last Admin: 12/13/21 11:40 Dose: 1 each Glucose (Dextrose 31 Gm Oral.Susp) 15 gm PO PRN PRN PRN Reason: Hypoglycemia Sodium Chloride (Sodium Chloride 0.9%) 1,000 mls @ 100 mls/hr IV .Q10H [facility] Last Admin: 12/13/21 13:39 Dose: 100 mls/hr Ibuprofen (Ibuprofen 600 Mg Tablet) 600 mg PO QIDP PRN; Protocol PRN Reason: Per Pain Protocol/Fever > 101 Insulin Human Lispro (Insulin Lispro 1 Unit/0.01 Ml Unit) 0 unit SQ ACHS [facility]; Protocol Last Admin: 12/13/21 11:40 Dose: Not Given Metoprolol Succinate (Metoprolol Succinate 25 Mg Tab.Xl.24h) 12.5 mg PO DAILY [facility] Metoprolol Tartrate (Metoprolol Tartrate 5 Mg/5 Ml Vial) 5 mg IV Q5M PRN PRN Reason: Tachyarrhythmias Metoprolol Tartrate (Metoprolol Tartrate 25 Mg Tablet) 12.5 mg PO QID [facility] Ondansetron HCl (Ondansetron 4 Mg/2 Ml Vial) 4 mg IV Q6HP PRN PRN Reason: Nausea And Vomiting Oxycodone HCl (Oxycodone Hcl 5 Mg Tablet) 5 mg PO Q4HP PRN; Protocol PRN Reason: Per Pain Protocol Pneumococcal Polyvalent Vaccine (Pneumococcal 23-Ermelinda P-Sac Vac 0.5 Ml Syringe) 0.5 ml IM .ONCE ONE Stop: 12/14/21 10:01 Sodium Chloride (0.9 % Sodium Chloride 10 Ml Syringe) 10 ml IV Q8 MARK Last Admin: 12/13/21 14:15 Dose: Not Given Trazodone HCl (Trazodone Hcl 50 Mg Tablet) 25 mg PO HSP PRN PRN Reason: Insomnia Last Admin: 12/12/21 21:00 Dose: 25 mg A/P Assessment and plan (1) Atrial fibrillation: Status: Acute (2) Anemia, macrocytic: Status: Acute (3) Diabetic nephropathy associated with type 2 diabetes mellitus: Status: Acute (4) T2DM (type 2 diabetes mellitus): Status: Acute (5) Right above-knee amputee: Status: Acute (6) Diarrhea: Status: Acute (7) PAD (peripheral artery disease): Status: Acute (8) Diabetic polyneuropathy associated with type 2 diabetes mellitus: Status: Acute Narrative A/P Narrative: Assessment and Plans: 1. Atrial fibrillation: Inpatient PCU with telemetry [id number] score of 4, Eliquis Convert Cardizem to metoprolol tart Santana 12.5 p.o. every 6 hours Lopressor 5mg IV q5min PRN HR>120bpm, hold if SBP<90 and/or DBP<50mmHg 2D echocardiogram results pending 2. Peripheral arterial disease: Lipitor Brianna Outpatient cardiology follow-up 3. T2DM with associated polyneuropathy and nephropathy: HgA1c Hold any oral hypoglycemics Accu Chek AC HS Insulin Lispor SSI AC HS Hypoglycemia protocol Diabetic diet Avoid nephrotoxic agents NS@100cc/hr CMP in the morning to trend kidney functions 4. Diarrhea: C diff toxin PCR CT abdomen pelvis w/o NS@100cc/hr for rehydration purposes 5. Anemia associated with chronic kidney disease: cbc w/ auto diff daily to trend H/H GI ppx: not currently indicated DVT ppx: Eliquis Code status: DNR Prognosis: guarded Disposition: inpatient PCU; PT OT Time Spent With Patient Time: Total time spent is greater than 50% in coordination of care (as documented) at patient's floor/unit and/or counseling patient: Total time spent with greater than 50% in coordination of care (as documented) at patient's floor/unit and/or counseling patient:: 25 - 35 minutes QUALITY VTE Deep Vein Thrombosis/Pulmonary Embolism Present on Admission: No
[2021-12-13] MEDS ORDERED: 0.9 % SODIUM CHLORIDE 1,000 ML IV SCH (15:15)
--- NOTE | 2021-12-13 15:26 | Cardiology Progress Note ---
SUBJECTIVE Subjective Patient information: Note initiated : 12/13/21 at 2:54 pm Service Date, if different from initiated Date: [] Patient: Vinicio Knight 76 y/o M admitted on 12/12/21 for Weakness, Failure to thrive/ A-Fib and leg wound. Chief Complaint: [atrial fibrillation] complaining of stitch in side and wants a cigaretee, but no complaints of orthopnea or shortness of breath. Principal diagnosis: atrial fibrillation Interval history: Patient is in and out of afib with rates controlled on low lose metoprolol. official Echocardiogram results shows an EF of 20% on echocardiogram with global hypokinesis. Moderate aortic insufficiency with more mild aortic stenosis not moderate with moderate to severe mitral regurgitation. Current telemetry shows sinus rhythm with PVCS, creatinine improved to 2.3. chest xray shows moderate pleural effusions, he received 20 of IV lasix, currently on 100cc/hour of IV saline. No diarrhea in the last 24 hours. Some low bps in the 90s but when in the room today BP 135/92. Pertinent ROS: no shortness of breath, dizziness or orthopnea Constitutional Vitals: Vital Signs Temp Pulse Resp BP Pulse Ox O2 Del Method 96.9 F L 78 20 106/71 96 12/13/21 12:01 12/13/21 06:37 12/13/21 12:49 12/13/21 12:49 12/13/21 12:49 12/13/21 04:02 Period Temp Pulse Resp BP Sys/Ocampo Pulse Ox O2 Del Method O2 Flow Rate Last 24 Hr 96.9 F-98.8 F 78-123 01-12 71-112/52-86 90-98 Room Air-Room Air Intake and Output 12/13/21 12/13/21 12/13/21 05:59 13:59 21:59 Intake Total 1000 1000 Output Total 250 Balance 1000 750 Intake & Output: Intake & Output 12/13/21 12/13/21 12/13/21 05:59 13:59 21:59 Intake Total 1000 1000 Output Total 250 Balance 1000 750 Intake: IV 1000 1000 Sodium Chloride 0.9% 1,000 ml @ 1000 1000 100 mls/hr IV .Q10H [facility] Rx#: [id number] Output: Void Amount 250 Other: Urine Appearance Clear Urine Color Dark Eliz Urine Odor Normal General appearance: mild distress Head Head exam: Present atraumatic Eye Eye exam: Present conjunctival injection and PERRL Neck Neck exam: Present full ROM Respiratory Respiratory exam: Present normal respiratory exam; Absent prolonged expiratory phase Expanded Respiratory Exam Location: decreased breath sounds: Left, Right and Lower Expanded Cardiovascular Exam Type of murmur: Present diastolic and systolic Peripheral pulses: 0: carotid (L) and posterior tibialis (R) GI/Abdominal GI/Abdominal exam: Present normal bowel sounds and soft Extremities Exam Additional comments: right BKA, multiple poorly healing ulcer left leg with poor cap refill A/P Assessment and plan (1) Aortic regurgitation: Status: Acute Comment: mitral regurgitation (2) Mitral regurgitation: Status: Acute (3) Pleural effusion: Status: Acute Comment: Cardiomyopathy- mutifactorial including valvular heart disease and tachycardia mediated (4) Atrial fibrillation: Status: Acute Plan reduce IV fluids to 25cc/hour to avoid acute decompensated heart failure change metoprolol in a.m. to 25mg po bid start amiodarone 200mg bid x 1 month then once daily, I feel comfortable with this plan since he is now anticoagulated and is having intermittent episodes of sinus rhythm start lasix 20mg daily prior to dischage, need CHF teaching including low sodium diet. Will do ischemic work up at a later date will get an appoinment set up to see Dr. Heredia in the next month Probably need ECF and PT Will try and see him tomorrow as well Time Spent With Patient Time: Total time spent is greater than 50% in coordination of care (as documented) at patient's floor/unit and/or counseling patient: Total time spent with greater than 50% in coordination of care (as documented) at patient's floor/unit and/or counseling patient:: 15 - 24 minutes Critical Care Time: Yes Total Critical Care Time: 60 Attestation: [place] [facility]NA
[2021-12-13] MEDS ORDERED: FUROSEMIDE 20 MG/2 ML VIAL IV PRN (16:01)
[2021-12-13] MEDS: METOPROLOL TARTRATE 25 MG TABLET PO SCH ×2 (17:29→21:33)
[2021-12-13] MEDS: AMIODARONE HCL 200 MG TABLET PO SCH (17:56)
[2021-12-13] MEDS ORDERED: ASPIRIN 325 MG ENTERIC COATED TABLET PO SCH (21:00)
[2021-12-13] MEDS ORDERED: APIXABAN 5 MG TABLET PO SCH (21:00)
[2021-12-13] MEDS ORDERED: ATORVASTATIN 40 MG TABLET PO SCH (21:00)
[2021-12-13] MEDS: ATORVASTATIN 40 MG TABLET PO SCH (21:33)
[2021-12-14] MEDS: 0.9 % SODIUM CHLORIDE 10 ML SYRINGE IV SCH ×3 (05:29→20:33)
[2021-12-14] MEDS: INSULIN LISPRO 1 UNIT/0.01 ML UNIT SQ SCH ×4 (07:29→20:30)
[2021-12-14 07:31] LABS: Basophils # (Auto) 0.02 K/mcL (0.00-0.30); Basophils % (Auto) 0.2 % (0.0-2.0); Eosinophils # (Auto) 0.07 K/mcL (0.00-0.70); Eosinophils % (Auto) 0.8 % (0.0-7.0); Hematocrit 35.3 % (40.1-51.0); Hemoglobin 10.9 g/dL (13.7-17.5); Lymphocytes # (Auto) 0.82 K/mcL (1.50-4.80); Mean Corpuscular HGB Conc 30.9 g/dL (31.0-36.0); Mean Platelet Volume 11.9 fL (8.8-12.5); Monocytes # (Auto) 0.53 K/mcL (0.10-0.90); Monocytes % (Auto) 6.4 % (1.0-12.0); Neutrophils % (Auto) 82.2 % (38.0-78.0); Platelet Count 154 K/mcL (140-440); RBC 3.53 M/mcL (4.63-6.08); Red Cell Distribution Width 15.2 % (11.5-14.5); WBC 8.2 K/mcL (4.5-11.0)
[2021-12-14 08:19] LABS: ALT/SGPT 20 U/L (<40); AST/SGOT 17 U/L (<40); Albumin 2.5 gm/dL (3.2-5.2); Alkaline Phosphatase 95 U/L (39-117); Bilirubin,Total 0.2 mg/dL (0.1-1.0); Blood Urea Nitrogen 25 mg/dL (8-23); Calcium 7.9 mg/dL (8.6-10.4); Carbon Dioxide 14 mmol/L (22-30); Chloride 111 mmol/L (96-108); Globulin 2.5 gm/dL (2.2-3.7); Glomerular Filtration Rate 24; Glucose 91 mg/dL (70-105)
[2021-12-14 08:20] LABS: Phosphorous 4.8 mg/dL (2.5-4.5)
[2021-12-14] MEDS ORDERED: METOPROLOL SUCCINATE 25 MG TAB.XL.24H PO SCH (09:00)
[2021-12-14] MEDS ORDERED: PNEUMOCOCCAL 23-VAL P-SAC VAC 0.5 ML SYRINGE IM ONE (10:00)
--- NOTE | 2021-12-14 11:17 | Internal Med Progress Note ---
SUBJECTIVE Subjective Patient information: Note initiated : 12/14/21 at 11:11 am Service Date, if different from initiated Date: [] Patient: Vinicio Knight a 76 y/o M admitted on 12/12/21 for Weakness, Failure to thrive/ A-Fib and leg wound. Chief Complaint: [] Principal diagnosis: atrial fibrillation Interval history: Mr. Knight is a 76 year old M history of type 2 diabetes, right-sided AKA, presenting with weakness. He has been having diarrhea for 3 days and earlier today at around 10 AM when he was trying to get up from the wheelchair, the wheelchair tipped to the cushion and he felt to the ground. He was unable to get up from the ground. He did not pass out no loss of consciousness. Denies any chest pain or palpitations or shortness of breath. He called EMS to be sent to our ED for further evaluation and treatments. Vital sign significant for tachycardia with heart rate in the 130s, and atrial fibrillation's. Soft blood pressure as low as 83/68 mmHg. Labs significant for a mildly elevated WBC of 11 .1. H&H 11.1 and 36.1, respectively. Serum creatinine level 2.5 unknown baseline. Glucose level 145. Status post IV Lopressor and IV Cardizem pushes in the ED, respectively. Current heart rate lingering between 80s and 100s beats per minute. 12/13: With no major overnight events. Patient is currently rate controlled. Patient denies any chest pain palpitations or shortness of breath. He is comfortable and denies any pain. Convert Cardizem to metoprolol tartrate 12.5 p.o. every 6 hours. Continue Eliquis. Add Lipitor. Pending echocardiogram report. Pending physical therapy and Occupational Therapy for placement planning. Will need outpatient cardiology follow-up. 12/14: With no major overnight events. Patient is currently rate controlled. Patient denies any chest pain palpitations or shortness of breath. He is comfortable and denies any pain. Holding Metoprolol tartrate for this morning given soft blood pressure. Continue Eliquis/Lipitor. Echocardiogram showing reduced systolic function with LVEF 20%. Pending physical therapy and Occupational Therapy for placement planning. Will need outpatient cardiology follow-up.Transfer to med surg telemetry. Constitutional Vitals: Vital Signs Temp Pulse Resp BP Pulse Ox O2 Del Method O2 Flow Rate 36.4 C 67 32 H 99/49 97 1 12/14/21 08:02 12/14/21 02:01 12/14/21 08:02 12/14/21 08:02 12/14/21 02:01 12/14/21 01:52 12/14/21 00:06 Period Temp Pulse Resp BP Sys/Ocampo Pulse Ox O2 Del Method O2 Flow Rate Last 24 Hr 36.1 C-37.1 C 67-86 0-32 70-137/44-93 95-98 Nasal Cannula-Room Air 1 Intake and Output 12/13/21 12/14/21 12/14/21 21:59 05:59 13:59 Intake Total 300 360 Output Total 151 Balance 300 -151 360 Weight 64.438 kg 64.438 kg Patient Weight 12/15/21 05:59 Weight 64.438 kg Intake & Output: Intake & Output 12/13/21 12/14/21 12/14/21 21:59 05:59 13:59 Intake Total 300 360 Output Total 151 Balance 300 -151 360 Weight 64.438 kg 64.438 kg Intake: IV 300 Sodium Chloride 0.9% 1,000 ml @ 300 100 mls/hr IV .Q10H [facility] Rx#: [id number] Oral 360 Output: Void Amount 150 # of times incontinent of urine 1 Other: Meal Breakfast Percent of Meal Consumed 100% Feeding Ability Assist with Tray Set Up Urine Appearance Clear Urine Color Yellow Stool Size Moderate Stool Color Brown Stool Consistency Soft # Bowel Movements 1 General appearance: average body habitus, disheveled and no acute distress; no cooperative Head Head exam: Present atraumatic and normal inspection Eye Eye exam: Present normal appearance ENT ENT exam: Present mucous membranes moist, normal exam and normal external ear exam Neck Neck exam: Present normal inspection Respiratory Respiratory exam: Present normal respiratory exam Cardiovascular Cardiovascular exam: Present irregular rhythm GI/Abdominal GI/Abdominal exam: Present normal bowel sounds Extremities Exam Extremities exam: Present full ROM; Absent normal inspection or tenderness Additional comments: Right AKA Back Exam Back exam: Present normal inspection Neurological Exam Neurological exam: Present alert and oriented X3 Skin Skin exam: Present intact and warm OBJ DATA Labs CBC & Chem 7: 12/14/21 05:18 12/14/21 05:18 Labs: Abnormal Lab Results 12/14/21 12/14/21 12/13/21 05:18 05:18 11:37 WBC RBC 3.53 L Hgb 10.9 L Hct 35.3 L MCV MCHC 30.9 L RDW 15.2 H Neut % (Auto) 82.2 H Lymph % (Auto) 10.0 L Lymph # (Auto) 0.82 L Absolute Neutrophils Chloride 111 H Carbon Dioxide 14 L BUN 25 H Creatinine 2.5 H Glucose Calcium 7.9 L Phosphorus 4.8 H Total Creatine Kinase Total Protein 5.0 L Albumin 2.5 L Urine Protein 30 A Urine RBC 9 H Urine WBC 6 H Hyaline Casts 38 H Granular Casts 1 H Urine Mucus Few A 12/13/21 12/13/21 12/12/21 05:30 05:30 10:37 WBC RBC 3.42 L Hgb 10.6 L Hct 34.6 L MCV 101.2 H MCHC 30.6 L RDW 15.2 H Neut % (Auto) 81.4 H Lymph % (Auto) 9.4 L Lymph # (Auto) 0.81 L Absolute Neutrophils Chloride 111 H Carbon Dioxide 15 L BUN 25 H Creatinine 2.3 H Glucose 139 H Calcium 7.9 L Phosphorus Total Creatine Kinase 220 H Total Protein 5.0 L Albumin 2.8 L Urine Protein Urine RBC Urine WBC Hyaline Casts Granular Casts Urine Mucus 12/12/21 12/12/21 10:37 10:37 WBC 11.1 H RBC 3.58 L Hgb 11.3 L Hct 36.1 L MCV 100.8 H MCHC RDW 15.0 H Neut % (Auto) 81.1 H Lymph % (Auto) 10.2 L Lymph # (Auto) 1.13 L Absolute Neutrophils 9.01 H Chloride Carbon Dioxide 16 L BUN Creatinine 2.5 H Glucose 145 H Calcium 8.4 L Phosphorus Total Creatine Kinase Total Protein 5.8 L Albumin 3.0 L Urine Protein Urine RBC Urine WBC Hyaline Casts Granular Casts Urine Mucus Meds: Medications Acetaminophen (Acetaminophen 325 Mg Tablet) 650 mg PO Q6HP PRN; Protocol PRN Reason: Per Pain Protocol/Fever > 101 Albuterol/Ipratropium (Ipratropium/Albuterol 3 Ml Ampul.Neb) 3 ml NEB Q4HRT PRN PRN Reason: Wheezing Amiodarone HCl (Amiodarone Hcl 200 Mg Tablet) 200 mg PO BIDCC [facility] Last Admin: 12/13/21 17:56 Dose: 200 mg Apixaban (Apixaban 5 Mg Tablet) 5 mg PO BID [facility] Last Admin: 12/13/21 21:33 Dose: 5 mg Atorvastatin Calcium (Atorvastatin 40 Mg Tablet) 40 mg PO HS [facility] Last Admin: 12/13/21 21:33 Dose: 40 mg Atorvastatin Calcium (Atorvastatin 40 Mg Tablet) 40 mg PO HS [facility] Last Admin: 12/13/21 21:33 Dose: Not Given Dextrose (Dextrose 50% 50 Ml Vial) 0 ml IV UD PRN PRN Reason: Per Sliding Scale Diagnostic Test (Pha) (Accu-Chek 1 Each Strip) 1 each FS [facility] Last Admin: 12/14/21 07:29 Dose: 1 each Furosemide (Furosemide 20 Mg/2 Ml Vial) 20 mg IV ONCE PRN PRN Reason: Shortness Of Breath Or Wheezing Glucose (Dextrose 31 Gm Oral.Susp) 15 gm PO PRN PRN PRN Reason: Hypoglycemia Sodium Chloride (Sodium Chloride 0.9%) 1,000 mls @ 25 mls/hr IV .Q24H [facility] Last Admin: 12/13/21 16:59 Dose: 25 mls/hr Ibuprofen (Ibuprofen 600 Mg Tablet) 600 mg PO QIDP PRN; Protocol PRN Reason: Per Pain Protocol/Fever > 101 Insulin Human Lispro (Insulin Lispro 1 Unit/0.01 Ml Unit) 0 unit SQ [facility]; Protocol Last Admin: 12/14/21 07:29 Dose: Not Given Metoprolol Tartrate (Metoprolol Tartrate 5 Mg/5 Ml Vial) 5 mg IV Q5M PRN PRN Reason: Tachyarrhythmias Metoprolol Tartrate (Metoprolol Tartrate 25 Mg Tablet) 12.5 mg PO QID [facility] Last Admin: 12/13/21 21:33 Dose: 12.5 mg Nicotine (Nicotine 7 Mg Patch) 7 mg TOPICAL DAILY@1000 [facility] Ondansetron HCl (Ondansetron 4 Mg/2 Ml Vial) 4 mg IV Q6HP PRN PRN Reason: Nausea And Vomiting Oxycodone HCl (Oxycodone Hcl 5 Mg Tablet) 5 mg PO Q4HP PRN; Protocol PRN Reason: Per Pain Protocol Sodium Chloride (0.9 % Sodium Chloride 10 Ml Syringe) 10 ml IV Q8 [facility] Last Admin: 12/14/21 05:29 Dose: 10 ml Trazodone HCl (Trazodone Hcl 50 Mg Tablet) 25 mg PO HSP PRN PRN Reason: Insomnia Last Admin: 12/12/21 21:00 Dose: 25 mg A/P Assessment and plan (1) Atrial fibrillation: Status: Acute (2) Anemia, macrocytic: Status: Acute (3) Diabetic nephropathy associated with type 2 diabetes mellitus: Status: Acute (4) T2DM (type 2 diabetes mellitus): Status: Acute (5) Right above-knee amputee: Status: Acute (6) Diarrhea: Status: Acute (7) PAD (peripheral artery disease): Status: Acute (8) Diabetic polyneuropathy associated with type 2 diabetes mellitus: Status: Acute Narrative A/P Narrative: Assessment and Plans: 1. Atrial fibrillation: Inpatient med surg with telemetry [id number] score of 4, Eliquis Holding Metoprolol tartrate PO this morning given soft blood pressure Lopressor 5mg IV q5min PRN HR>120bpm, hold if SBP<90 and/or DBP<50mmHg 2D echocardiogram showing reduced systolic function with LVEF 20% 2. Peripheral arterial disease: Lipitor Eliquis Outpatient cardiology follow-up 3. T2DM with associated polyneuropathy and nephropathy: HgA1c Hold any oral hypoglycemics Accu Chek AC HS Insulin Lispor SSI AC HS Hypoglycemia protocol Diabetic diet Avoid nephrotoxic agents Saline lock CMP in the morning to trend kidney functions 4. Diarrhea: C diff toxin PCR pending CT abdomen pelvis w/o Saline lock 5. Anemia associated with chronic kidney disease: cbc w/ auto diff daily to trend H/H 6. Systolic CHF with LVEF 20%: Holding Metoprolol tartrate PO this morning given soft blood pressure Consider adding diuretics/ALINE-i/ARB/Aldactone when blood pressure tolerates Need outpatient cardiology follow up appointment GI ppx: not currently indicated DVT ppx: Eliquis Code status: DNR Prognosis: Stable Disposition: inpatient med surg telemetry; PT OT Time Spent With Patient Time: Total time spent is greater than 50% in coordination of care (as documented) at patient's floor/unit and/or counseling patient: Total time spent with greater than 50% in coordination of care (as documented) at patient's floor/unit and/or counseling patient:: 25 - 35 minutes QUALITY VTE Deep Vein Thrombosis/Pulmonary Embolism Present on Admission: No
[2021-12-14] MEDS: METOPROLOL TARTRATE 25 MG TABLET PO SCH ×4 (11:30→20:32)
[2021-12-14] MEDS: AMIODARONE HCL 200 MG TABLET PO SCH ×2 (11:35→18:14)
[2021-12-14] MEDS: NICOTINE 7 MG PATCH TOPICAL SCH ×2 (11:35→12:07)
[2021-12-14] MEDS: APIXABAN 5 MG TABLET PO SCH ×2 (11:35→20:30)
--- NOTE | 2021-12-14 14:03 | Internal Med Progress Note ---
SUBJECTIVE Subjective Patient information: Note initiated : 12/14/21 at 1:50 pm Service Date, if different from initiated Date: [] Patient: Vinicio Knight a 76 y/o M admitted on 12/12/21 for Weakness, Failure to thrive/ A-Fib and leg wound. Chief Complaint: [] Principal diagnosis: atrial fibrillation Interval history: Mr. Knight is a 76 year old M history of type 2 diabetes, right-sided AKA, presenting with weakness. He has been having diarrhea for 3 days and earlier today at around 10 AM when he was trying to get up from the wheelchair, the wheelchair tipped to the cushion and he felt to the ground. He was unable to get up from the ground. He did not pass out no loss of consciousness. Denies any chest pain or palpitations or shortness of breath. He called EMS to be sent to our ED for further evaluation and treatments. Vital sign significant for tachycardia with heart rate in the 130s, and atrial fibrillation's. Soft blood pressure as low as 83/68 mmHg. Labs significant for a mildly elevated WBC of 11.1. H&H 11.1 and 36.1, respectively. Serum creatinine level 2.5 unknown baseline. Glucose level 145. Status post IV Lopressor and IV Cardizem pushes in the ED, respectively. Current heart rate lingering between 80s and 100s beats per minute. 12/13: With no major overnight events. Patient is currently rate controlled. Patient denies any chest pain palpitations or shortness of breath. He is comfortable and denies any pain. Convert Cardizem to metoprolol tartrate 12.5 p.o. every 6 hours. Continue Eliquis. Add Lipitor. Pending echocardiogram report. Pending physical therapy and Occupational Therapy for placement planning. Will need outpatient cardiology follow-up. 12/14: With no major overnight events. Patient is currently rate controlled. Patient denies any chest pain palpitations or shortness of breath. He is comfortable and denies any pain. Holding Metoprolol tartrate for this morning given soft blood pressure. Continue Eliquis/Lipitor. Echocardiogram showing reduced systolic function with LVEF 20%. Pending physical therapy and Occupational Therapy for placement planning. Will need outpatient cardiology follow-up.Transfer to med surg telemetry. 12/15 Constitutional Vitals: Vital Signs Temp Pulse Resp BP Pulse Ox O2 Del Method O2 Flow Rate 97.6 F 67 32 H 99/49 97 1 12/14/21 08:02 12/14/21 02:01 12/14/21 08:02 12/14/21 08:02 12/14/21 02:01 12/14/21 01:52 12/14/21 00:06 Period Temp Pulse Resp BP Sys/Ocampo Pulse Ox O2 Del Method O2 Flow Rate Last 24 Hr 97 F-98.7 F 67-86 0-32 70-137/44-93 95-98 Nasal Cannula-Room Air 1 Intake and Output 12/13/21 12/14/21 12/14/21 21:59 05:59 13:59 Intake Total 300 360 Output Total 151 Balance 300 -151 360 Weight 64.438 kg 64.438 kg Patient Weight 12/15/21 05:59 Weight 64.438 kg Intake & Output: Intake & Output 12/13/21 12/14/21 12/14/21 21:59 05:59 13:59 Intake Total 300 360 Output Total 151 Balance 300 -151 360 Weight 64.438 kg 64.438 kg Intake: IV 300 Sodium Chloride 0.9% 1,000 ml @ 300 100 mls/hr IV .Q10H [facility] Rx#: [id number] Oral 360 Output: Void Amount 150 # of times incontinent of urine 1 Other: Meal Breakfast Percent of Meal Consumed 100% Feeding Ability Assist with Tray Set Up Urine Appearance Clear Urine Color Yellow Stool Size Moderate Stool Color Brown Stool Consistency Soft # Bowel Movements 1 Exam: General: Alert, Awake, No acute Distress Eyes/N/T: EOMI, Head/Neck: neck supple, CV: irreg irreg, No murmurs, Pulm: Clear b/l, no wheezing/rhonchi/rales Abd: soft, nontender, +BS x4 Ext: no clubbing/cyanosis. Right AKA Neuro: Alert, no focal deficits, moves all extremities, Skin: warm/dry OBJ DATA Labs CBC & Chem 7: 12/14/21 05:18 12/14/21 05:18 Labs: Abnormal Lab Results 12/14/21 12/14/21 12/13/21 05:18 05:18 11:37 WBC RBC 3.53 L Hgb 10.9 L Hct 35.3 L MCV MCHC 30.9 L RDW 15.2 H Neut % (Auto) 82.2 H Lymph % (Auto) 10.0 L Lymph # (Auto) 0.82 L Absolute Neutrophils Chloride 111 H Carbon Dioxide 14 L BUN 25 H Creatinine 2.5 H Glucose Calcium 7.9 L Phosphorus 4.8 H Total Creatine Kinase Total Protein 5.0 L Albumin 2.5 L Urine Protein 30 A Urine RBC 9 H Urine WBC 6 H Hyaline Casts 38 H Granular Casts 1 H Urine Mucus Few A 12/13/21 12/13/21 12/12/21 05:30 05:30 10:37 WBC RBC 3.42 L Hgb 10.6 L Hct 34.6 L MCV 101.2 H MCHC 30.6 L RDW 15.2 H Neut % (Auto) 81.4 H Lymph % (Auto) 9.4 L Lymph # (Auto) 0.81 L Absolute Neutrophils Chloride 111 H Carbon Dioxide 15 L BUN 25 H Creatinine 2.3 H Glucose 139 H Calcium 7.9 L Phosphorus Total Creatine Kinase 220 H Total Protein 5.0 L Albumin 2.8 L Urine Protein Urine RBC Urine WBC Hyaline Casts Granular Casts Urine Mucus 12/12/21 12/12/21 10:37 10:37 WBC 11.1 H RBC 3.58 L Hgb 11.3 L Hct 36.1 L MCV 100.8 H MCHC RDW 15.0 H Neut % (Auto) 81.1 H Lymph % (Auto) 10.2 L Lymph # (Auto) 1.13 L Absolute Neutrophils 9.01 H Chloride Carbon Dioxide 16 L BUN Creatinine 2.5 H Glucose 145 H Calcium 8.4 L Phosphorus Total Creatine Kinase Total Protein 5.8 L Albumin 3.0 L Urine Protein Urine RBC Urine WBC Hyaline Casts Granular Casts Urine Mucus Meds: Medications Acetaminophen (Acetaminophen 325 Mg Tablet) 650 mg PO Q6HP PRN; Protocol PRN Reason: Per Pain Protocol/Fever > 101 Albuterol/Ipratropium (Ipratropium/Albuterol 3 Ml Ampul.Neb) 3 ml NEB Q4HRT PRN PRN Reason: Wheezing Amiodarone [facility] ([facility] 200 Mg [facility]) [facility] Last Admin: 12/14/21 11:35 Dose: 200 mg Apixaban (Apixaban 5 Mg Tablet) 5 mg PO BID [facility] Last Admin: 12/14/21 11:35 Dose: 5 mg Atorvastatin Calcium (Atorvastatin 40 Mg Tablet) 40 mg PO HS [facility] Last Admin: 12/13/21 21:33 Dose: 40 mg Dextrose (Dextrose 50% 50 Ml Vial) 0 ml IV UD PRN PRN Reason: Per Sliding Scale Diagnostic Test (Pha) (Accu-Chek 1 Each Strip) 1 each FS [facility] Last Admin: 12/14/21 11:35 Dose: 1 each Furosemide (Furosemide 20 Mg/2 Ml Vial) 20 mg IV ONCE PRN PRN Reason: Shortness Of Breath Or Wheezing Glucose (Dextrose 31 Gm Oral.Susp) 15 gm PO PRN PRN PRN Reason: Hypoglycemia Ibuprofen (Ibuprofen 600 Mg Tablet) 600 mg PO QIDP PRN; Protocol PRN Reason: Per Pain Protocol/Fever > 101 Insulin Human Lispro (Insulin Lispro 1 Unit/0.01 Ml Unit) 0 unit SQ [facility]; Protocol Last Admin: 12/14/21 11:36 Dose: Not Given Metoprolol Tartrate (Metoprolol Tartrate 5 Mg/5 Ml Vial) 5 mg IV Q5M PRN PRN Reason: Tachyarrhythmias Metoprolol Tartrate (Metoprolol Tartrate 25 Mg Tablet) 12.5 mg PO QID [facility] Last Admin: 12/14/21 12:38 Dose: 12.5 mg Nicotine (Nicotine 7 Mg Patch) 7 mg TOPICAL DAILY@1000 [facility] Last Admin: 12/14/21 12:07 Dose: Not Given Ondansetron HCl (Ondansetron 4 Mg/2 Ml Vial) 4 mg IV Q6HP PRN PRN Reason: Nausea And Vomiting Oxycodone HCl (Oxycodone Hcl 5 Mg Tablet) 5 mg PO Q4HP PRN; Protocol PRN Reason: Per Pain Protocol Sodium Chloride (0.9 % Sodium Chloride 10 Ml Syringe) 10 ml IV Q8 [facility] Last Admin: 12/14/21 05:29 Dose: 10 ml Trazodone HCl (Trazodone Hcl 50 Mg Tablet) 25 mg PO HSP PRN PRN Reason: Insomnia Last Admin: 12/12/21 21:00 Dose: 25 mg A/P Narrative A/P Narrative: A: *chronic Atrial fibrillation rvr: -[id number] = 4, Eliquis -echo LVEF 20% *Peripheral arterial disease: : on Lipitor/Eliquis *chronic systolic(20%)CHF: *, mod-sev: *JASWINDER on likely CKD: ?cardiorenal component *Anemia, chronic associated with chronic kidney disease: *T2DM w/polyneuropathy & nephropathy: -HgA1c *Diarrhea: resolved P: -Cardiology following, f/u outpt -amio started per cardio, on BB -Consider adding diuretics/ACEI orARB/Aldactone when blood pressure tolerates -IVF d/c'd -SSI -avoid nephrotoxic -PT/OT -referral to see nephrology -ppx: Eliquis Code status: DNR Time Spent With Patient Time: Total time spent is greater than 50% in coordination of care (as documented) at patient's floor/unit and/or counseling patient: QUALITY VTE Deep Vein Thrombosis/Pulmonary Embolism Present on Admission: No
[2021-12-14] MEDS ORDERED: ALBUMIN HUMAN 12.5 GM/50 ML BAG IV SCH (14:15)
[2021-12-14] MEDS: SODIUM BICARBONATE 650 MG TABLET PO SCH ×2 (14:59→20:31)
--- NOTE | 2021-12-14 15:07 | General Surgery Consult Note ---
HPI Data of Consult Consult date: 12/14/21 Requesting physician: Delbert Briseno Primary Care Provider: PCP No Consult Narrative Patient Information: Note initiated : 12/14/21 at 2:52 pm Service Date, if different from initiated Date: [] Patient: Vinicio Knight 76 y/o M admitted on 12/12/21 for Weakness, Failure to thrive/ A-Fib and leg wound. Chief Complaint: [] Reason for consult: Evaluation for wounds of LEFT foot and leg. cc:: Saw patient with Arturo Pedro RN. Examined patient's wounds and had a long conversation with this very talkative gentleman. CC: Delbert Briseno MD PFSH PFSH All Active Problems Atrial fibrillation (Acute) Pleural effusion (Acute) Mitral regurgitation (Acute) Aortic regurgitation (Acute) BPH (benign prostatic hyperplasia) (Acute) Chronic renal insufficiency, stage III (moderate) (Acute) Cardiomyopathy (Acute) Aortic stenosis (Acute) Diabetic polyneuropathy associated with type 2 diabetes mellitus (Acute) PAD (peripheral artery disease) (Acute) Diarrhea (Acute) Right above-knee amputee (Acute) T2DM (type 2 diabetes mellitus) (Acute) Diabetic nephropathy associated with type 2 diabetes mellitus (Acute) Anemia, macrocytic (Acute) Atrial fibrillation (Acute) Social History smoking status: Former smoker MEDS/ALLERGIES Home Medications and Allergies Home Medications Medication Instructions Recorded Confirmed Type Adult Multi plus Kingsley-3 600 mg PO QDAY 12/12/21 12/12/21 History Adults Multivitamin 1 tab PO QDAY 12/12/21 12/12/21 History ascorbate calcium (vitamin C) 500 500 mg PO QDAY 12/12/21 12/12/21 History mg tablet aspirin 650 mg PO QHS 12/12/21 12/12/21 History biotin 500 mcg capsule 500 mcg PO QDAY 12/12/21 12/12/21 History calcium carbonate 600 mg-vitamin 1 tab PO QDAY 12/12/21 12/12/21 History D3 5 mcg (200 unit) tablet vit C-vit P-[id number]-omega 1 cap PO QDAY 12/12/21 12/12/21 History 3 100 mg-15 unit-2 mg-100 mg capsule Allergies Allergy/AdvReac Type Severity Reaction Status Date / Time No Known Drug Allergies Allergy Verified 12/12/21 10:14 Physical Examination Vital Signs Vital signs: Temp Pulse Resp BP Pulse Ox O2 Del Method O2 Flow Rate 97.6 F 83 18 82/46 97 1 12/14/21 08:02 12/14/21 12:20 12/14/21 14:01 12/14/21 14:01 12/14/21 12:20 12/14/21 01:52 12/14/21 00:06 Elderly gentleman. AVSS. Cachectic. LUCID, conversational AAOx3. Reviewed medical conditions and agree with his ongoing treatment. General physical appearance General physical exam: cachectic and chronically ill Eyes Eye exam: PERRL and normal ocular movement ENT ENT exam: normal mucosa and no congestion Head Head exam IM: Present normal inspection Neck Neck exam: no masses and no venous distension Cardiovascular Cardiovascular exam IM: Present normal rate and rhythm Respiratory Respiratory exam: normal respiratory effort and clear to auscultation Abdomen Abdomen: Present soft, non tender and bowel sounds Integumentary Integumentary: Present other (Dusky, wasted LEFT foot and lower 2/3 of leg. NON palpable pedal or popliteal pulse. Multiple scattered dry arterial ulcers with clincal signs of infrapopliteal occlusive PAD. He has undergone RIGHT AKA. ) Neurologic Neurologic: Present other (Non focal neurological examination. ) Musculoskeletal Musculoskeletal: Present other (Bed or w/c confined. RIGHT sided AKA. LEFT sided arterial ulcers Stage 2-3 of toes, foot and leg. Mainly dry scabs with some drainage around calf and between toes. ) Psychiatric Psychiatric: Present oriented to time, oriented to person, oriented to place, speech is normal, memory intact and other (Very philosophical. Lives by himself. NO relatives. He is a . Worked in [employer]. OPEN to being referred to [facility] in [facility] for placement.) Results Labs Result diagrams: 12/14/21 05:18 12/14/21 05:18 Labs: Abnormal lab results 12/14/21 12/14/21 Range/Units 05:18 05:18 RBC 3.53 L (4.63-6.08) M/mcL Hgb 10.9 L (13.7-17.5) g/dL Hct 35.3 L (40.1-51.0) % MCHC 30.9 L (31.0-36.0) g/dL RDW 15.2 H (11.5-14.5) % Neut % (Auto) 82.2 H (38.0-78.0) % Lymph % (Auto) 10.0 L (15.5-49.0) % Lymph # (Auto) 0.82 L (1.50-4.80) K/mcL Chloride 111 H (96-108) mmol/L Carbon Dioxide 14 L (22-30) mmol/L BUN 25 H (8-23) mg/dL Creatinine 2.5 H (0.7-1.2) mg/dL Calcium 7.9 L (8.6-10.4) mg/dL Phosphorus 4.8 H (2.5-4.5) mg/dL Total Protein 5.0 L (5.9-8.4) gm/dL Albumin 2.5 L (3.2-5.2) gm/dL Diabetes panel 12/14/21 Range/Units 05:18 Sodium 141 (133-145) mmol/L Potassium 4.2 (3.3-5.1) mmol/L Chloride 111 H (96-108) mmol/L Carbon Dioxide 14 L (22-30) mmol/L BUN 25 H (8-23) mg/dL Creatinine 2.5 H (0.7-1.2) mg/dL Glucose 91 (70-105) mg/dL Calcium 7.9 L (8.6-10.4) mg/dL AST 17 (<40) U/L ALT 20 (<40) U/L Alkaline Phosphatase 95 (39-117) U/L Total Protein 5.0 L (5.9-8.4) gm/dL Albumin 2.5 L (3.2-5.2) gm/dL Calcium panel 12/14/21 Range/Units 05:18 Calcium 7.9 L (8.6-10.4) mg/dL Phosphorus 4.8 H (2.5-4.5) mg/dL Albumin 2.5 L (3.2-5.2) gm/dL Pituitary panel 12/14/21 Range/Units 05:18 Sodium 141 (133-145) mmol/L Potassium 4.2 (3.3-5.1) mmol/L Chloride 111 H (96-108) mmol/L Carbon Dioxide 14 L (22-30) mmol/L BUN 25 H (8-23) mg/dL Creatinine 2.5 H (0.7-1.2) mg/dL Glucose 91 (70-105) mg/dL Calcium 7.9 L (8.6-10.4) mg/dL Adrenal panel 12/14/21 Range/Units 05:18 Sodium 141 (133-145) mmol/L Potassium 4.2 (3.3-5.1) mmol/L Chloride 111 H (96-108) mmol/L Carbon Dioxide 14 L (22-30) mmol/L BUN 25 H (8-23) mg/dL Creatinine 2.5 H (0.7-1.2) mg/dL Glucose 91 (70-105) mg/dL Calcium 7.9 L (8.6-10.4) mg/dL Total Bilirubin 0.2 (0.1-1.0) mg/dL AST 17 (<40) U/L ALT 20 (<40) U/L Alkaline Phosphatase 95 (39-117) U/L Total Protein 5.0 L (5.9-8.4) gm/dL Albumin 2.5 L (3.2-5.2) gm/dL All other labs normal. A/P Narrative A/P Narrative: Assessment: Multiple arterial ulcers of LEFT leg, foot and toes. RIGHT AKA. Suspect infrapopliteal vasoocclusive disease. Probably NOT a candidate for intervention. Patient is NOT keen on any aggressive treatments. Plan: Wound care as outlined by Arturo Pedro RN. Recommend consider CM evaluation and referral to [facility] in [facility]. Time Spent With Patient Time: Total time spent is greater than 50% in coordination of care (as documented) at patient's floor/unit and/or counseling patient:
--- NOTE | 2021-12-14 16:39 | Cardiology Progress Note ---
SUBJECTIVE Subjective Patient information: Note initiated : 12/14/21 at 4:17 pm Service Date, if different from initiated Date: [] Patient: Vinicio Knight 76 y/o M admitted on 12/12/21 for Weakness, Failure to thrive/ A-Fib and leg wound. Chief Complaint: [atrial fibrillation and systolic heart failure] Principal diagnosis: atrial fibrillation Interval history: Patient was admitted with diarrhea and a recent fall. 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 He has not been able to ambulate well for several years and is used the wheelchair. He has had a prosthetic device for the right BKA that needs to be refitted but he is willing to attempt this. He is also wanting to go to an extended care facility for rehab. We were asked to follow along for some atrial fibrillation with rapid ventricular response. Echocardiogram showed EF of 20% with moderate AI mild aortic stenosis and moderate-severe mitral regurgitation. He has had some hypotensive episodes but no complaints of overt dizziness. He was started on metoprolol 12.5 every 6 hours and atrial fibrillation rate slowed down and he had intermittent episodes of sinus rhythm with no significant conversion pauses. He was started on Eliquis. Creatinine was 2.5 and baseline is unknown. His underlying diabetes is well. He has had minimal management for any of his comorbidities. Eliquis dose was initiated 2.5 twice daily approximately 48 hours ago. Amiodarone was started due to the noted episodes of sinus rhythm. And heart rate is now sinus rhythm in the mid 80s. He does have some noted JVD and chest x-ray showed bilateral pleural effusions. Overall however, the patient is improved. Pertinent ROS: Denies any shortness of breath orthopnea or peripheral edema no cough no recent diarrhea no chest pain. Constitutional Vitals: Vital Signs Temp Pulse Resp BP Pulse Ox O2 Del Method O2 Flow Rate 97.6 F 83 18 82/46 97 1 12/14/21 08:02 12/14/21 12:20 12/14/21 14:01 12/14/21 14:01 12/14/21 12:20 12/14/21 08:00 12/14/21 00:06 Period Temp Pulse Resp BP Sys/Ocampo Pulse Ox O2 Del Method O2 Flow Rate Last 24 Hr 97 F-97.6 F 67-86 0-32 70-117/44-78 95-98 Nasal Cannula-Room Air 1 Intake and Output 12/14/21 12/14/21 12/14/21 05:59 13:59 21:59 Intake Total 360 Output Total 151 Balance -151 360 Weight 64.438 kg Patient Weight 12/15/21 05:59 Weight 64.438 kg Intake & Output: Intake & Output 12/14/21 12/14/21 12/14/21 05:59 13:59 21:59 Intake Total 360 Output Total 151 Balance -151 360 Weight 64.438 kg Intake: Oral 360 Output: Void Amount 150 # of times incontinent of urine 1 Other: Meal Breakfast Percent of Meal Consumed 100% Feeding Ability Assist with Tray Set Up Urine Appearance Clear Urine Color Yellow Stool Size Moderate Stool Color Brown Stool Consistency Soft # Bowel Movements 1 General appearance: cooperative Head Head exam: Present atraumatic Eye Eye exam: Present PERRL Neck Additional comments: JVD noted Expanded Respiratory Exam Location: decreased breath sounds: Left, Right and Lower Cardiovascular Cardiovascular exam: Present normal rate and rhythm, JVD and systolic murmur GI/Abdominal GI/Abdominal exam: Present normal bowel sounds Extremities Exam Additional comments: Right BKA left leg with poor capillary refill multiple ulcers none peripheral neuropathy so he does have loss of sensation. No signs of gangrene. 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 Atrial fibrillation-now in sinus rhythm on amiodarone 2. Systolic heart failure-likely tachycardia mediated with underlying valvular heart disease with moderate severe mitral regurgitation. 3. Moderate-severe mitral regurgitation 4. Moderate aortic insufficiency with mild aortic stenosis 5. Peripheral vascular disease 6. Right BKA 7. Renal insufficiency Plan: Some signs of mild CHF recommend starting Lasix 20 mg daily and I think he should be discharged on Lasix. Needs CHF teaching including low-sodium diet recommend continued amiodarone 200 mg twice daily for a month then reduce down to 200 mg once daily He can go home on metoprolol 25 mg twice daily due to some drops in blood pressure I do not think he tolerate the addition of other heart failure medications at this time. Like to see what his creatinine does with med management. If creatinine trends down consider stress lisinopril. Continue with Lipitor and low-dose Eliquis 2.5 twice daily avoid aspirin due to anemia and risk for GI bleed. We are working on getting him a follow-up with Dr. Isaías Heredia within the next 4 weeks From a cardiac standpoint I think he is reasonable for discharge to extended- care facility with PT patient is agreeable to this as well. We will consider ischemic work-up as an outpatient but I suspect cardiomyopathy is multifactorial from valvular heart disease and tachycardia mediated cardiomyopathy. Status: Acute (3) Aortic regurgitation: Status: Acute Comment: mitral regurgitation (4) Cardiomyopathy: Status: Acute (5) Anemia, macrocytic: Status: Acute Time Spent With Patient Time: Total time spent is greater than 50% in coordination of care (as documented) at patient's floor/unit and/or counseling patient: Total time spent with greater than 50% in coordination of care (as documented) at patient's floor/unit and/or counseling patient:: 35 - 50 minutes Total Critical Care Time: 50
[2021-12-14] MEDS: ATORVASTATIN 40 MG TABLET PO SCH (20:31)
[2021-12-15] MEDS: 0.9 % SODIUM CHLORIDE 10 ML SYRINGE IV SCH ×2 (05:51→15:07)
[2021-12-15] MEDS: AMIODARONE HCL 200 MG TABLET PO SCH ×2 (07:20→18:38)
[2021-12-15 07:24] LABS: Basophils # (Auto) 0.02 K/mcL (0.00-0.30); Basophils % (Auto) 0.2 % (0.0-2.0); Eosinophils # (Auto) 0.06 K/mcL (0.00-0.70); Eosinophils % (Auto) 0.6 % (0.0-7.0); Hematocrit 34.1 % (40.1-51.0); Lymphocytes # (Auto) 0.91 K/mcL (1.50-4.80); Lymphocytes % (Auto) 8.5 % (15.5-49.0); Mean Cell Volume 98.3 fL (80.0-100.0); Mean Corpuscular HGB Conc 32.3 g/dL (31.0-36.0); Mean Platelet Volume 12.2 fL (8.8-12.5); Monocytes # (Auto) 0.76 K/mcL (0.10-0.90); Monocytes % (Auto) 7.1 % (1.0-12.0); Neutrophils % (Auto) 83.2 % (38.0-78.0); Platelet Count 162 K/mcL (140-440); RBC 3.47 M/mcL (4.63-6.08); Red Cell Distribution Width 15.4 % (11.5-14.5); WBC 10.7 K/mcL (4.5-11.0)
[2021-12-15] MEDS: INSULIN LISPRO 1 UNIT/0.01 ML UNIT SQ SCH ×3 (07:24→18:42)
[2021-12-15 07:41] LABS: ALT/SGPT 15 U/L (<40); AST/SGOT 13 U/L (<40); Albumin 2.6 gm/dL (3.2-5.2); Albumin/Globulin Ratio 1.2 (1.0-2.3); Alkaline Phosphatase 89 U/L (39-117); Bilirubin,Total 0.3 mg/dL (0.1-1.0); Blood Urea Nitrogen 27 mg/dL (8-23); Carbon Dioxide 15 mmol/L (22-30); Chloride 106 mmol/L (96-108); Globulin 2.2 gm/dL (2.2-3.7); Glomerular Filtration Rate 22; Glucose 114 mg/dL (70-105); Phosphorous 4.6 mg/dL (2.5-4.5)
--- NOTE | 2021-12-15 08:10 | Internal Med Progress Note ---
SUBJECTIVE Subjective Patient information: Note initiated : 12/15/21 at 8:05 am Service Date, if different from initiated Date: [] Patient: Vinicio Knight a 76 y/o M admitted on 12/12/21 for Weakness, Failure to thrive/ A-Fib and leg wound. Chief Complaint: [] Principal diagnosis: atrial fibrillation Interval history: Mr. Knight is a 76 year old M history of type 2 diabetes, right-sided AKA, presenting with weakness. He has been having diarrhea for 3 days and earlier today at around 10 AM when he was trying to get up from the wheelchair, the wheelchair tipped to the cushion and he felt to the ground. He was unable to get up from the ground. He did not pass out no loss of consciousness. Denies any chest pain or palpitations or shortness of breath. He called EMS to be sent to our ED for further evaluation and treatments. Vital sign significant for tachycardia with heart rate in the 130s, and atrial fibrillation's. Soft blood pressure as low as 83/68 mmHg. Labs significant for a mildly elevated WBC of 11.1. H&H 11.1 and 36.1, respectively. Serum creatinine level 2.5 unknown baseline. Glucose level 145. Status post IV Lopressor and IV Cardizem pushes in the ED, respectively. Current heart rate lingering between 80s and 100s beats per minute. 12/13: With no major overnight events. Patient is currently rate controlled. Patient denies any chest pain palpitations or shortness of breath. He is comfortable and denies any pain. Convert Cardizem to metoprolol tartrate 12.5 p.o. every 6 hours. Continue Eliquis. Add Lipitor. Pending echocardiogram report. Pending physical therapy and Occupational Therapy for placement planning. Will need outpatient cardiology follow-up. 12/14: With no major overnight events. Patient is currently rate controlled. Patient denies any chest pain palpitations or shortness of breath. He is comfortable and denies any pain. Holding Metoprolol tartrate for this morning given soft blood pressure. Continue Eliquis/Lipitor. Echocardiogram showing reduced systolic function with LVEF 20%. Pending physical therapy and Occupational Therapy for placement planning. Will need outpatient cardiology follow-up.Transfer to med surg telemetry. 12/15 Patient denies any new complaints overnight events. Patient seen by cardiology today. Amiodarone 200 twice daily for 1 month then once daily thereafter, metoprolol 25 twice daily Lasix 20 daily consider lisinopril if renal function continues to improve. Metabolic acidosis on labs. Creatinine 2.6 it was 2.5 yesterday. Hyperphosphatemia. Chest x-ray with left midlung and lower lobe infiltrate consolidation. Review of Systems: Mild chronic dyspnea. Denies headache/fever/chills/nausea/vomiting/chest or abdominal pain/cough/diarrhea. Otherwise see above. Constitutional Vitals: Vital Signs Temp Pulse Resp BP Pulse Ox O2 Del Method O2 Flow Rate 97.3 F 70 15 110/72 99 1 12/15/21 03:05 12/14/21 23:57 12/15/21 05:12 12/15/21 03:00 12/14/21 23:57 12/15/21 03:05 12/14/21 00:06 Period Temp Pulse Resp BP Sys/Ocampo Pulse Ox O2 Del Method O2 Flow Rate Last 24 Hr 97.3 F-98.9 F 70-83 12-25 78-119/46-76 96-99 Room Air-Room Air Intake and Output 12/14/21 12/15/21 12/15/21 21:59 05:59 13:59 Intake Total 774 405 9144 Output Total 160 75 Balance 045 56 5683 Weight 63.673 kg Intake & Output: Intake & Output 12/14/21 12/15/21 12/15/21 21:59 05:59 13:59 Intake Total 766 751 4086 Output Total 160 75 Balance 456 23 5448 Weight 63.673 kg Intake: IV 50 800 Sodium Chloride 0.9% 1,000 ml @ 800 25 mls/hr IV .Q24H [facility] Rx#: [id number] Oral 300 100 400 Output: Void Amount 160 75 Other: Meal Dinner Percent of Meal Consumed 100% Feeding Ability Assist with Tray Set Up Urine Appearance Clear Clear Urine Color Yellow Dark Yellow Stool Size Smear Stool Consistency Soft # Voids 1 # Bowel Movements 1 Exam: General: Alert, Awake, No acute Distress Eyes/N/T: EOMI, Head/Neck: neck supple, CV: irreg irreg, 2/6SM, Pulm: decreased BS b/l, no wheezing Abd: soft, nontender, +BS x4 Ext: no clubbing/cyanosis. Right BKA, 2+ LE edema improved showing wrinkling Neuro: Alert, no focal deficits, moves all extremities, Skin: warm/dry OBJ DATA Labs CBC & Chem 7: 12/15/21 05:04 12/15/21 05:04 Labs: Abnormal Lab Results 12/15/21 12/15/21 12/14/21 05:04 05:04 05:18 WBC RBC 3.47 L Hgb 11.0 L Hct 34.1 L MCV MCHC RDW 15.4 H Neut % (Auto) 83.2 H Lymph % (Auto) 8.5 L Lymph # (Auto) 0.91 L Absolute Neutrophils 8.91 H Chloride 111 H Carbon Dioxide 15 L 14 L BUN 27 H 25 H Creatinine 2.6 H 2.5 H Glucose 114 H Calcium 8.0 L 7.9 L Phosphorus 4.6 H 4.8 H Total Creatine Kinase Total Protein 4.8 L 5.0 L Albumin 2.6 L 2.5 L Urine Protein Urine RBC Urine WBC Hyaline Casts Granular Casts Urine Mucus 12/14/21 12/13/21 12/13/21 05:18 11:37 05:30 WBC RBC 3.53 L Hgb 10.9 L Hct 35.3 L MCV MCHC 30.9 L RDW 15.2 H Neut % (Auto) 82.2 H Lymph % (Auto) 10.0 L Lymph # (Auto) 0.82 L Absolute Neutrophils Chloride 111 H Carbon Dioxide 15 L BUN 25 H Creatinine 2.3 H Glucose 139 H Calcium 7.9 L Phosphorus Total Creatine Kinase Total Protein 5.0 L Albumin 2.8 L Urine Protein 30 A Urine RBC 9 H Urine WBC 6 H Hyaline Casts 38 H Granular Casts 1 H Urine Mucus Few A 12/13/21 12/12/21 12/12/21 05:30 10:37 10:37 WBC RBC 3.42 L Hgb 10.6 L Hct 34.6 L MCV 101.2 H MCHC 30.6 L RDW 15.2 H Neut % (Auto) 81.4 H Lymph % (Auto) 9.4 L Lymph # (Auto) 0.81 L Absolute Neutrophils Chloride Carbon Dioxide 16 L BUN Creatinine 2.5 H Glucose 145 H Calcium 8.4 L Phosphorus Total Creatine Kinase 220 H Total Protein 5.8 L Albumin 3.0 L Urine Protein Urine RBC Urine WBC Hyaline Casts Granular Casts Urine Mucus 12/12/21 10:37 WBC 11.1 H RBC 3.58 L Hgb 11.3 L Hct 36.1 L MCV 100.8 H MCHC RDW 15.0 H Neut % (Auto) 81.1 H Lymph % (Auto) 10.2 L Lymph # (Auto) 1.13 L Absolute Neutrophils 9.01 H Chloride Carbon Dioxide BUN Creatinine Glucose Calcium Phosphorus Total Creatine Kinase Total Protein Albumin Urine Protein Urine RBC Urine WBC Hyaline Casts Granular Casts Urine Mucus Meds: Medications Acetaminophen (Acetaminophen 325 Mg Tablet) 650 mg PO Q6HP PRN; Protocol PRN Reason: Per Pain Protocol/Fever > 101 Albuterol/Ipratropium (Ipratropium/Albuterol 3 Ml Ampul.Neb) 3 ml NEB Q4HRT PRN PRN Reason: Wheezing Amiodarone HCl (Amiodarone Hcl 200 Mg Tablet) [facility] Last Admin: 12/15/21 07:20 Dose: 200 mg Apixaban (Apixaban 5 Mg Tablet) 5 mg PO BID [facility] Last Admin: 12/14/21 20:30 Dose: 5 mg Atorvastatin Calcium (Atorvastatin 40 Mg Tablet) 40 mg PO HS [facility] Last Admin: 12/14/21 20:31 Dose: 40 mg Dextrose (Dextrose 50% 50 Ml Vial) 0 ml IV UD PRN PRN Reason: Per Sliding Scale Diagnostic Test (Pha) (Accu-Chek 1 Each Strip) 1 each FS [facility] Last Admin: 12/15/21 07:24 Dose: 1 each Furosemide (Furosemide 20 Mg/2 Ml Vial) 20 mg IV ONCE PRN PRN Reason: Shortness Of Breath Or Wheezing Furosemide (Furosemide 20 Mg Tablet) 20 mg PO DAILY [facility] Glucose (Dextrose 31 Gm Oral.Susp) 15 gm PO PRN PRN PRN Reason: Hypoglycemia Ibuprofen (Ibuprofen 600 Mg Tablet) 600 mg PO QIDP PRN; Protocol PRN Reason: Per Pain Protocol/Fever > 101 Insulin Human Lispro (Insulin Lispro 1 Unit/0.01 Ml Unit) 0 unit SQ [facility]; Protocol Last Admin: 12/15/21 07:24 Dose: Not Given Metoprolol Tartrate (Metoprolol Tartrate 5 Mg/5 Ml Vial) 5 mg IV Q5M PRN PRN Reason: Tachyarrhythmias Metoprolol Tartrate (Metoprolol Tartrate 25 Mg Tablet) 12.5 mg PO QID [facility] Last Admin: 12/14/21 20:32 Dose: 12.5 mg Nicotine (Nicotine 7 Mg Patch) 7 mg TOPICAL DAILY@1000 [facility] Last Admin: 12/14/21 12:07 Dose: Not Given Ondansetron HCl (Ondansetron 4 Mg/2 Ml Vial) 4 mg IV Q6HP PRN PRN Reason: Nausea And Vomiting Oxycodone HCl (Oxycodone Hcl 5 Mg Tablet) 5 mg PO Q4HP PRN; Protocol PRN Reason: Per Pain Protocol Sodium Chloride (0.9 % Sodium Chloride 10 Ml Syringe) 10 ml IV Q8 [facility] Last Admin: 12/15/21 05:51 Dose: 10 ml Trazodone HCl (Trazodone Hcl 50 Mg Tablet) 25 mg PO HSP PRN PRN Reason: Insomnia Last Admin: 12/12/21 21:00 Dose: 25 mg A/P Narrative A/P Narrative: A: *chronic Atrial fibrillation rvr: -[id number] = 4, Eliquis -echo LVEF 20% *Peripheral arterial disease: on Lipitor/Eliquis *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 (mod MR/AR): *cxr consolidation left side *JASWINDER on likely CKD: ?cardiorenal component *Anemia, chronic associated with chronic kidney disease: *Metabolic acidosis: *T2DM w/polyneuropathy & nephropathy: -HgA1c 5.9 *Diarrhea: resolved P: -Cardiology following, f/u outpt -amio started per cardio, on BB/lasix -Consider adding ACEI/Aldactone if BP/renal fxn allow -chest us to eval effusions -SSI -avoid nephrotoxic -PT/OT -referral to see nephrology -ppx: Eliquis Code status: DNR Time Spent With Patient Time: Total time spent is greater than 50% in coordination of care (as documented) at patient's floor/unit and/or counseling patient: Total time spent with greater than 50% in coordination of care (as documented) at patient's floor/unit and/or counseling patient:: 35 - 50 minutes QUALITY VTE Deep Vein Thrombosis/Pulmonary Embolism Present on Admission: No
[2021-12-15] MEDS ORDERED: FUROSEMIDE 20 MG TABLET PO SCH (09:00)
--- NOTE | 2021-12-15 09:01 | XRay Report ---
INDICATION: f/u edema TECHNIQUE: AP portable chest x-ray COMPARISON: Previous chest x-rays dated 12/12/2021, 04/09/2010 FINDINGS: There is marked cardiomegaly, unchanged. Pulmonary vascularity is prominent. There are bilateral parenchymal infiltrates consistent with pulmonary edema. Findings are worse since previous examination. There is consolidation in the left mid lung and lower lobe. This may be due to pulmonary edema but pneumonia is possible. Clinical correlation and continued follow-up radiographs are recommended. There are probable bilateral effusions, left worse than right. IMPRESSION: 1. Increasing parenchymal infiltrates bilaterally. Infiltrates are worst in the left midlung and lower lobe. 2. Findings are consistent with worsening pulmonary edema. Left lung pneumonia is possible 3. Probable pleural fluid, left worse than right Interpreted and Authenticated by: Guanako Rice 12/15/21
[2021-12-15] MEDS: SODIUM BICARBONATE 650 MG TABLET PO SCH ×3 (09:07→19:52)
[2021-12-15] MEDS: APIXABAN 5 MG TABLET PO SCH ×2 (09:07→19:52)
[2021-12-15] MEDS: METOPROLOL TARTRATE 25 MG TABLET PO SCH ×2 (09:08→13:23)
[2021-12-15 09:27] LABS: Hemoglobin A1C 5.9 % Hgb (4.0-6.0)
[2021-12-15] MEDS: NICOTINE 7 MG PATCH TOPICAL SCH (10:36)
[2021-12-15] MEDS: FUROSEMIDE 20 MG TABLET PO SCH (10:51)
--- NOTE | 2021-12-15 11:52 | Ultrasound Report ---
INDICATION: evaluate size of effusions, dyspnea TECHNIQUE: Bedside ultrasound performed. COMPARISON: Previous chest x-ray dated 12/15/2021 FINDINGS: Very limited examination. This patient refused to sit or allow for scan to be performed in upright position. This patient was scanned in a decubitus position. There are moderate bilateral pleural effusions. Pleural effusions are bilaterally symmetrical IMPRESSION: 1. Limited evaluation 2. Moderate bilateral pleural effusions Interpreted and Authenticated by: Guanako Rice 12/15/21
[2021-12-15 13:42] LABS: INR 1.6 (0.9-1.1); Prothrombin Time 19.2 sec (11.9-14.5)
--- NOTE | 2021-12-15 15:28 | Ultrasound Report ---
INDICATION: diuretic refractory and f/o infectious TECHNIQUE: Informed consent was obtained. Meniscus procedure as well as potential risks and convocations including risk of left pneumothorax or hemothorax. Patient understood and consented. Moderate left pleural effusion was localized with ultrasound. Routine ChloraPrep skin cleansing. 10 mL lidocaine injected subcutaneously. A 6 [place] safety centesis set was utilized. 1.2 L clear yellow fluid removed. Postprocedure chest x-ray is pending IMPRESSION: 1. Ultrasound-guided left thoracentesis 2. 1.2 L clear yellow fluid removed Interpreted and Authenticated by: Guanako Rice 12/15/21
--- NOTE | 2021-12-15 15:29 | XRay Report ---
INDICATION: POST THORA TECHNIQUE: AP portable chest x-ray COMPARISON: Previous chest x-rays dated 12/15/2021, 12/12/2021, 04/09/2010 FINDINGS: Status post ultrasound-guided left thoracentesis. 1.2 L clear yellow fluid was removed. Significant interval decrease in left pleural effusion. There is no postprocedure pneumothorax. IMPRESSION: 1. Status post left thoracentesis 2. No postprocedure pneumothorax. Interpreted and Authenticated by: Guanako Rice 12/15/21
--- NOTE | 2021-12-15 15:32 | General Surgery Progress Note ---
SUBJECTIVE Subjective Patient information: Note initiated : 12/15/21 at 3:27 pm Service Date, if different from initiated Date: [] Patient: Vinicio Knight 76 y/o M admitted on 12/12/21 for Weakness, Failure to thrive/ A-Fib and leg wound. Chief Complaint: [] Principal diagnosis: atrial fibrillation Additional PMFSH (Level 3 Only): Patient resting comfortably. Asleep. Reviewed Dr. Wall's note from [facility]. Reviewed wound care progress with Marielena MARTÍNEZ Constitutional Vitals: Vital Signs Temp Pulse Resp BP Pulse Ox O2 Del Method O2 Flow Rate 97.6 F 70 35 H 103/81 99 1 12/15/21 12:02 12/14/21 23:57 12/15/21 14:23 12/15/21 13:12 12/15/21 12:02 12/15/21 09:08 12/14/21 00:06 Period Temp Pulse Resp BP Sys/Ocampo Pulse Ox O2 Del Method O2 Flow Rate Last 24 Hr 97.3 F-98.9 F 70-78 12-37 87-110/55-88 96-99 Room Air-Room Air Intake and Output 12/15/21 12/15/21 12/15/21 05:59 13:59 21:59 Intake Total 100 1320 Output Total 75 Balance 25 1320 Intake & Output: Intake & Output 12/15/21 12/15/21 12/15/21 05:59 13:59 21:59 Intake Total 100 1320 Output Total 75 Balance 25 1320 Intake: IV 800 Sodium Chloride 0.9% 1,000 ml @ 800 25 mls/hr IV .Q24H [facility] Rx#: [id number] Oral 100 520 Output: Void Amount 75 Other: Meal Breakfast Percent of Meal Consumed 75% Feeding Ability Assist with Tray Set Up Urine Appearance Clear Urine Color Dark Yellow Exam: 12/15/2021 At his baseline. Comfortable. No changes MACK. Left leg no changes. A/P Narrative A/P Narrative: Assessment: Multiple comorbidities. Cardiac, PAD advanced RIGHT AKA, LEFT sided occlusive PAD, Left pulmonary infiltrate AND Renal insufficiency Malnutrition. Plan of Treatment: Plan: Agree with ongoing supportive medial management. Local wound care. Time Spent With Patient Time: Total time spent is greater than 50% in coordination of care (as documented) at patient's floor/unit and/or counseling patient:
[2021-12-15] MEDS ORDERED: LACTATED RINGERS 250 ML IV ONE ×2 (16:29→18:05)
--- NOTE | 2021-12-15 16:29 | XRay Report ---
INDICATION: hypoxia TECHNIQUE: AP portable upright chest x-ray COMPARISON: Previous postthoracentesis chest x-ray dated 12/15/2021 and free thoracentesis chest x-ray dated 12/15/2021 FINDINGS: Lungs:There is parenchymal density in the left retrocardiac region consistent with left lower lobe atelectasis. Pneumonia is possible. No new pulmonary parenchymal infiltrate or mass. Pulmonary edema pattern is improved since prethoracentesis chest x-ray. Heart, vascular:No significant cardiomegaly. Pulmonary vascularity is normal. No pulmonary edema or pulmonary congestion Mediastinum, reece:No mediastinal widening. No hilar mass Pleura:Residual left pleural effusion is decreased since prethoracentesis chest x-ray. There is no pneumothorax. Skeletal:Negative. IMPRESSION: 1. Improved chest x-ray since prethoracentesis chest x-ray dated 12/15/2021 2. Left lower lobe atelectasis or infiltrate is unchanged. Pneumonia is possible 3. Decreased left pleural effusion. No pneumothorax Interpreted and Authenticated by: Guanako Rice 12/15/21
[2021-12-15] MEDS ORDERED: DIGOXIN 500 MCG/2 ML AMPUL IV ONE ×2 (16:35→17:03)
[2021-12-15 17:59] LABS: Hematocrit 37.1 % (40.1-51.0); Hemoglobin 11.9 g/dL (13.7-17.5)
[2021-12-15] MEDS ORDERED: METOPROLOL TARTRATE 5 MG/5 ML VIAL IV PRN (19:16)
[2021-12-15] MEDS: ATORVASTATIN 40 MG TABLET PO SCH (19:52)
[2021-12-15] MEDS: traZODone HCL 50 MG TABLET PO PRN (19:52)
[2021-12-15] MEDS ORDERED: METOPROLOL TARTRATE 5 MG/5 ML VIAL IV ONE (19:56)
[2021-12-15] MEDS ORDERED: NOREPINEPHRINE BITARTRATE 16 MG in 0.9 % SODIUM CHLORIDE 234 ML IV SCH (21:00)
[2021-12-15] MEDS ORDERED: METOPROLOL TARTRATE 25 MG TABLET PO SCH ×2 (21:00)
[2021-12-15] MEDS ORDERED: DIGOXIN 500 MCG/2 ML AMPUL IV SCH (21:00)
[2021-12-15] MEDS ORDERED: LACTATED RINGERS 1,000 ML IV SCH (21:15)
[2021-12-15] MEDS ORDERED: ALBUMIN HUMAN 12.5 GM/50 ML BAG IV ONE (21:21)
[2021-12-15] MEDS ORDERED: NOREPINEPHRINE BITARTRATE 4 MG/4 ML VIAL IV ONE (21:30)
--- NOTE | 2021-12-15 21:42 | Event Note ---
Event Note Event Note: Patient has had soft blood pressures since admission and at times hypotensive, he became hypotensive this afternoon. Patient was asymptomatic. However stat lactate elevated lactic acidosis. Patient was given fluid bolus 250 lactated Ringer and later repeated with resolution of hypotension. Then in the early e vening patient went into A. fib RVR and was given IV Lopressor which dropped blood pressure again. Patient subsequently required Levophed and transferred to the ICU. All beta-blockers discontinued. Also given digoxin this afternoon with the first event, given his reduced LV fxn. monitor closely in icu, uop, vitals. cont amio. Critical Care time 30-45 minutes
[2021-12-15 22:07] LABS: Appearance,Pleural Fluid Clear; Color,Pleural Fluid P. Yellow; Lymphocytes,Pleural Fluid 41 %; Neutrophils,Pleural Fluid 50 %; Nucleated Cells,Pleural Fld 45 /cumm; RBC,Pleural Fluid <50,000 /cumm
[2021-12-15] MEDS ORDERED: 0.9 % SODIUM CHLORIDE 10 ML SYRINGE IV PRN (22:26)
--- NOTE | 2021-12-15 22:31 | Procedure Note ---
PROC Central Line Placement Right IJ: Consent obtained: verbal consent Date of Procedure: 12/15/21 Time out performed: Yes Patient placed on monitor/pulse ox: Yes MD prep: mask, sterile gown, sterile gloves and cap Central line prep: 2% Chlorhexidine scrub and large sterile drapes applied Local anesthesia used: lidocaine 1% Amount of anesthesia used (mls): 3 Ultrasound used for placement: Yes Central line lumen inserted: quad and 16 cm Post procedure: sutured in place, good blood return, all ports aspirated, flushed, capped and sterile dressing applied Patient tolerated procedure: well Additional comments: Stat chest x-ray ordered to confirm placement
[2021-12-15 22:36] LABS: Total Protein,Body Fluid 0.9 gm/dL
[2021-12-15 22:40] LABS: LDH,Pleural Fluid 63 U/L (<122)
[2021-12-15] MEDS ORDERED: VASOPRESSIN 20 UNIT in DEXTROSE 5% IN WATER 99 ML IV SCH (22:45)
[2021-12-15] MEDS ORDERED: VASOPRESSIN 20 UNIT/ML VIAL ONE (22:52)
[2021-12-15] MEDS ORDERED: ALBUMIN HUMAN 50 ML IV ONE (23:06)
[2021-12-16] MEDS: INSULIN LISPRO 1 UNIT/0.01 ML UNIT SQ SCH ×5 (00:27→22:02)
[2021-12-16] MEDS: 0.9 % SODIUM CHLORIDE 10 ML SYRINGE IV SCH ×5 (00:28→23:08)
[2021-12-16] MEDS: 0.9 % SODIUM CHLORIDE 250 ML IV SCH ×5 (03:16→21:18)
--- NOTE | 2021-12-16 07:03 | XRay Report ---
INDICATION: Central Line Placement TECHNIQUE: AP portable semierect supine chest x-ray COMPARISON: Previous chest x-rays dated 12/15/2021, 12/12/2021 FINDINGS:Status post right central venous catheter placement. Tip is in the superior vena cava. No detectable pneumothorax on this AP chest x-ray. There are infiltrates consistent with pulmonary edema. There are probable pleural effusions. Left pleural effusion is decreased since prior examination, status post left thoracentesis. There is no left pneumothorax. IMPRESSION: 1. Right central venous catheter with its tip in the superior vena cava 2. No detectable pneumothorax Interpreted and Authenticated by: Guanako Rice 12/16/21
[2021-12-16 07:23] LABS: ALT/SGPT 237 U/L (<40); AST/SGOT 624 U/L (<40); Albumin 2.7 gm/dL (3.2-5.2); Albumin/Globulin Ratio 1.1 (1.0-2.3); Alkaline Phosphatase 105 U/L (39-117); Bilirubin,Direct 0.8 mg/dL (<0.3); Bilirubin,Total 1.2 mg/dL (0.1-1.0); Blood Urea Nitrogen 33 mg/dL (8-23); Carbon Dioxide 13 mmol/L (22-30); Chloride 102 mmol/L (96-108); Globulin 2.4 gm/dL (2.2-3.7); Glomerular Filtration Rate 18; Glucose 118 mg/dL (70-105); Lactate Dehydrogenase 1262 U/L (135-225); Phosphorous 5.5 mg/dL (2.5-4.5); Triglycerides 100 mg/dL (<150); Uric Acid 10.7 mg/dL (2.5-8.0)
[2021-12-16] MEDS ORDERED: MILRINONE LACTATE/D5W 20 MG in PREMIX 1 BAG IV SCH (08:00)
--- NOTE | 2021-12-16 08:22 | Internal Med Progress Note ---
SUBJECTIVE Subjective Patient information: Note initiated : 12/16/21 at 8:16 am Service Date, if different from initiated Date: [] Patient: Vinicio Knight a 76 y/o M admitted on 12/12/21 for Weakness, Failure to thrive/ A-Fib and leg wound. Chief Complaint: [] Principal diagnosis: atrial fibrillation Interval history: Mr. Knight is a 76 year old M history of type 2 diabetes, right-sided AKA, presenting with weakness. He has been having diarrhea for 3 days and earlier today at around 10 AM when he was trying to get up from the wheelchair, the wheelchair tipped to the cushion and he felt to the ground. He was unable to get up from the ground. He did not pass out no loss of consciousness. Denies any chest pain or palpitations or shortness of breath. He called EMS to be sent to our ED for further evaluation and treatments. Vital sign significant for tachycardia with heart rate in the 130s, and atrial fibrillation's. Soft blood pressure as low as 83/68 mmHg. Labs significant for a mildly elevated WBC of 11.1. H&H 11.1 and 36.1, respectively. Serum creatinine level 2.5 unknown baseline. Glucose level 145. Status post IV Lopressor and IV Cardizem pushes in the ED, respectively. Current heart rate lingering between 80s and 100s beats per minute. 12/13: With no major overnight events. Patient is currently rate controlled. Patient denies any chest pain palpitations or shortness of breath. He is comfortable and denies any pain. Convert Cardizem to metoprolol tartrate 12.5 p.o. every 6 hours. Continue Eliquis. Add Lipitor. Pending echocardiogram report. Pending physical therapy and Occupational Therapy for placement planning. Will need outpatient cardiology follow-up. 12/14: With no major overnight events. Patient is currently rate controlled. Patient denies any chest pain palpitations or shortness of breath. He is comfortable and denies any pain. Holding Metoprolol tartrate for this morning given soft blood pressure. Continue Eliquis/Lipitor. Echocardiogram showing reduced systolic function with LVEF 20%. Pending physical therapy and Occupational Therapy for placement planning. Will need outpatient cardiology follow-up.Transfer to med surg telemetry. 12/15 Patient denies any new complaints overnight events. Patient seen by cardiology today. Amiodarone 200 twice daily for 1 month then once daily thereafter, metoprolol 25 twice daily Lasix 20 daily consider lisinopril if renal function continues to improve. Metabolic acidosis on labs. Creatinine 2.6 it was 2.5 yesterday. Hyperphosphatemia. Chest x-ray with left midlung and lower lobe infiltrate consolidation. Patient has had soft blood pressures since admission and at times hypotensive, he became hypotensive this afternoon. Patient was asymptomatic. However stat lactate elevated lactic acidosis. Patient was given fluid bolus 250 lactated Ringer and later repeated with resolution of hypotension. Then in the early evening patient went into A. fib RVR and was given IV Lopressor which dropped blood pressure again. Patient subsequently required Levophed and transferred to the ICU. All beta-blockers discontinued. Also given digoxin this afternoon with the first event, given his reduced LV fxn. monitor closely in icu, uop, vitals. cont amio. Review of Systems: Mild chronic dyspnea. Denies headache/fever/chills/nausea/vomiting/chest or abdominal pain/cough/diarrhea. Otherwise see above. I discussed with the patient this evening his current state of health and recent events today which are concerning. Discussed with him the structural findings of his heart and how poor shape his heart is in that put him at high risk for sudden cardiac . EF of 20% global hypokinesis and severe hypokinesis of the septum apex mid-distal inferior wall. Right ventricular systolic function mildly reduced, moderate to severe mitral regurgitation, moderate aortic regurgitation. I asked him what he he would want us to do if his status continued to deteriorate to the point where he was unable to make decisions. He said if it came to that he would want to be hospice. Talked with him regarding comfort care status -he said if he deteriorated that he would just want to be made comfortable with no aggressive or heroic measures. Nurse was present for this discussion. We will continue current measures. He is currently on Levophed with vasopressin adjunct. Calderon catheter placed for accurate I's and O's and patient is ICU status. Will continue to aggressively support; however, if he further deteriorates to the point where he is unable to consciously participate in his care then we will transition to comfort care only. IVF boluses 250cc at a time. 12/16 Tried to call family to give an update but the only contact listed on his record is a sister named Mulu but the phone number is to the patient's phone. Patient on Levophed and milrinone. Lactic acidosis secondary to cardiogenic shock. Scant urine output since last night. Patient drowsy but awakens and responds appropriately. He reconfirmed that if he has lost consciousness or became altered in a way that he could not be involved in his care that he would want to be made comfort care. Renal function worsened and mildly elevated potassium. Nephrology consulted. Shock liver. Multiorgan dysfunction Review of Systems: denies headache/fever/chills/nausea/vomiting/chest or abdominal pain/cough/ dyspnea/diarrhea. Otherwise see above. Constitutional Vitals: Vital Signs Temp Pulse Resp BP Pulse Ox O2 Del Method O2 Flow Rate 97.5 F 93 H 20 99/64 90 7 12/16/21 04:00 12/16/21 04:00 12/16/21 06:52 12/16/21 06:52 12/16/21 06:00 12/16/21 05:00 12/16/21 05:00 Period Temp Pulse Resp BP Sys/Ocampo Pulse Ox O2 Del Method O2 Flow Rate Last 24 Hr 97.4 F-98.1 F 30-143 3-37 47-155/36-141 4-99 Oxymask-Room Air 4-7 Intake and Output 12/15/21 12/16/21 12/16/21 21:59 05:59 13:59 Intake Total 1460 150 240 Output Total 160 0 Balance 1300 150 240 Weight 65.998 kg Intake & Output: Intake & Output 12/15/21 12/16/21 12/16/21 21:59 05:59 13:59 Intake Total 1460 150 240 Output Total 160 0 Balance 1300 150 240 Weight 65.998 kg Intake: IV 500 50 Lactated Ringers 250 ml @ Wide 500 Open IV BOLUS ONE Rx#: [id number] Oral 960 100 240 Output: Urine Catheter Amount 0 Void Amount 160 0 Other: Urine Appearance Clear Uretheral (Calderon) Clear Urine Color Dark Yellow Uretheral (Calderon) Yellow Blood Tinged Exam: General: Drowsy but awakens, No acute Distress Eyes/N/T: EOMI, Head/Neck: neck supple, CV: Regular at this time, 2/6SM, Pulm: Better aeration since thoracentesis, no wheezing Abd: soft, nontender, +BS x4 Ext: no clubbing/cyanosis. Right BKA, mild LE edema improved showing wrinkling Neuro: Drowsy but awakens and answers questions appropriately,, no focal deficits, moves all extremities, Skin: warm/dry OBJ DATA Labs CBC & Chem 7: 12/15/21 17:14 12/16/21 05:38 Labs: Abnormal Lab Results 12/16/21 12/16/21 12/15/21 05:48 05:38 17:24 RBC Hgb Hct MCHC RDW Neut % (Auto) Lymph % (Auto) Lymph # (Auto) Absolute Neutrophils PT INR POC VBG pH 7.23 L POC VBG pCO2 at Temp 35.4 L POC VBG pO2 15 L POC VBG HCO3 14.7 L POC VBG Total CO2 16.0 L POC Venous O2 Sat 15.0 L POC VBG Base Excess -13.0 L VBG Lactic Acid 5.7 H* 5.9 H* Sodium 131 L Potassium 5.9 H* Chloride Carbon Dioxide 13 L BUN 33 H Creatinine 3.1 H Glucose 118 H Uric Acid 10.7 H Calcium 8.0 L Phosphorus 5.5 H Total Bilirubin 1.2 H Direct Bilirubin 0.8 H AST 624 H ALT 237 H Lactate Dehydrogenase 1262 H Total Protein 5.1 L Albumin 2.7 L Procalcitonin Urine Protein Urine RBC Urine WBC Hyaline Casts Granular Casts Urine Mucus 12/15/21 12/15/21 12/15/21 17:14 12:39 10:48 RBC Hgb 11.9 L Hct 37.1 L MCHC RDW Neut % (Auto) Lymph % (Auto) Lymph # (Auto) Absolute Neutrophils PT 19.2 H INR 1.6 H POC VBG pH POC VBG pCO2 at Temp POC VBG pO2 POC VBG HCO3 POC VBG Total CO2 POC Venous O2 Sat POC VBG Base Excess VBG Lactic Acid Sodium Potassium Chloride Carbon Dioxide BUN Creatinine Glucose Uric Acid Calcium Phosphorus Total Bilirubin Direct Bilirubin AST ALT Lactate Dehydrogenase Total Protein Albumin Procalcitonin 0.12 H Urine Protein Urine RBC Urine WBC Hyaline Casts Granular Casts Urine Mucus 12/15/21 12/15/21 12/14/21 05:04 05:04 05:18 RBC 3.47 L Hgb 11.0 L Hct 34.1 L MCHC RDW 15.4 H Neut % (Auto) 83.2 H Lymph % (Auto) 8.5 L Lymph # (Auto) 0.91 L Absolute Neutrophils 8.91 H PT INR POC VBG pH POC VBG pCO2 at Temp POC VBG pO2 POC VBG HCO3 POC VBG Total CO2 POC Venous O2 Sat POC VBG Base Excess VBG Lactic Acid Sodium Potassium Chloride 111 H Carbon Dioxide 15 L 14 L BUN 27 H 25 H Creatinine 2.6 H 2.5 H Glucose 114 H Uric Acid Calcium 8.0 L 7.9 L Phosphorus 4.6 H 4.8 H Total Bilirubin Direct Bilirubin AST ALT Lactate Dehydrogenase Total Protein 4.8 L 5.0 L Albumin 2.6 L 2.5 L Procalcitonin Urine Protein Urine RBC Urine WBC Hyaline Casts Granular Casts Urine Mucus 12/14/21 12/13/21 05:18 11:37 RBC 3.53 L Hgb 10.9 L Hct 35.3 L MCHC 30.9 L RDW 15.2 H Neut % (Auto) 82.2 H Lymph % (Auto) 10.0 L Lymph # (Auto) 0.82 L Absolute Neutrophils PT INR POC VBG pH POC VBG pCO2 at Temp POC VBG pO2 POC VBG HCO3 POC VBG Total CO2 POC Venous O2 Sat POC VBG Base Excess VBG Lactic Acid Sodium Potassium Chloride Carbon Dioxide BUN Creatinine Glucose Uric Acid Calcium Phosphorus Total Bilirubin Direct Bilirubin AST ALT Lactate Dehydrogenase Total Protein Albumin Procalcitonin Urine Protein 30 A Urine RBC 9 H Urine WBC 6 H Hyaline Casts 38 H Granular Casts 1 H Urine Mucus Few A Meds: Medications Acetaminophen (Acetaminophen 325 Mg Tablet) 650 mg PO Q6HP PRN; Protocol PRN Reason: Per Pain Protocol/Fever > 101 Albuterol/Ipratropium (Ipratropium/Albuterol 3 Ml Ampul.Neb) 3 ml NEB Q4HRT PRN PRN Reason: Wheezing Amiodarone HCl (Amiodarone Hcl 200 Mg Tablet) [facility] Last Admin: 12/15/21 18:38 Dose: 200 mg Apixaban (Apixaban 5 Mg Tablet) 5 mg PO BID [facility] Last Admin: 12/15/21 19:52 Dose: 5 mg Atorvastatin Calcium (Atorvastatin 40 Mg Tablet) 40 mg PO [facility] Last Admin: 12/15/21 19:52 Dose: 40 mg Dextrose (Dextrose 50% 50 Ml Vial) 0 ml IV UD PRN PRN Reason: Per Sliding Scale Diagnostic Test (Pha) (Accu-Chek 1 Each Strip) 1 each FS ACHS [facility] Last Admin: 12/16/21 04:30 Dose: 1 each Furosemide (Furosemide 20 Mg/2 Ml Vial) 20 mg IV ONCE PRN PRN Reason: Shortness Of Breath Or Wheezing Furosemide (Furosemide 20 Mg Tablet) 20 mg PO DAILY [facility] Last Admin: 12/15/21 10:51 Dose: 20 mg Glucose (Dextrose 31 Gm Oral.Susp) 15 gm PO PRN PRN PRN Reason: Hypoglycemia Vasopressin 20 unit/ Dextrose 100 mls @ 9 mls/hr IV Q17H [facility]; Protocol Last Admin: 12/15/21 23:20 Dose: 0.03 unit/min, 9 mls/hr Sodium Chloride (Sodium Chloride 0.9%) 250 mls @ 20 mls/hr IV .[id number] [facility] Last Admin: 12/16/21 03:16 Dose: 20 mls/hr Norepinephrine Bitartrate 16 (mg/ Sodium Chloride) 250 mls @ 9.375 mls/hr IV Q24H [facility]; Protocol Sodium Chloride (Sodium Chloride 0.9%) 250 mls @ 20 mls/hr IV .[id number] [facility] Milrinone Lactate/Dextrose 20 (mg/ Premix) 100 mls @ 2.475 mls/hr IV .Q24H [facility]; Protocol Ibuprofen (Ibuprofen 600 Mg Tablet) 600 mg PO QIDP PRN; Protocol PRN Reason: Per Pain Protocol/Fever > 101 Insulin Human Lispro (Insulin Lispro 1 Unit/0.01 Ml Unit) 0 unit SQ [facility]; Protocol Last Admin: 12/16/21 00:27 Dose: Not Given Nicotine (Nicotine 7 Mg Patch) 7 mg TOPICAL DAILY@1000 [facility] Last Admin: 12/15/21 10:36 Dose: Not Given Ondansetron HCl (Ondansetron 4 Mg/2 Ml Vial) 4 mg IV Q6HP PRN PRN Reason: Nausea And Vomiting Oxycodone HCl (Oxycodone Hcl 5 Mg Tablet) 5 mg PO Q4HP PRN; Protocol PRN Reason: Per Pain Protocol Sodium Chloride (0.9 % Sodium Chloride 10 Ml Syringe) 10 ml IV Q8 [facility] Last Admin: 12/16/21 00:28 Dose: 10 ml Sodium Chloride (0.9 % Sodium Chloride 10 Ml Syringe) 10 ml IV Q12 [facility] Sodium Chloride (0.9 % Sodium Chloride 10 Ml Syringe) 10 ml IV UD PRN PRN Reason: DRESSING CHANGES Trazodone HCl (Trazodone Hcl 50 Mg Tablet) 25 mg PO HSP PRN PRN Reason: Insomnia Last Admin: 12/15/21 19:52 Dose: 25 mg A/P Narrative A/P Narrative: A: *Shock, likely cardiogenic: *Multiorgan dysfunction: *Lactic acidosis: 2/2 above *chronic Atrial fibrillation rvr: -[id number] = 4, Eliquis -echo LVEF 20% *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 (mod MR/AR): *Peripheral arterial disease: on Lipitor/Eliquis *Pleural effusion: -thora (12/15) of 1200cc transudate *JASWINDER on likely CKD w/renal failure, likely ATN: 2/2 cardiorenal component -scant uop *Anemia, chronic associated with chronic kidney disease: *Metabolic acidosis: *Shock liver/ischemic hepatitis: *T2DM w/polyneuropathy & nephropathy: -HgA1c 5.9 *Diarrhea: resolved *Goals of care: no aggressive treatment, pt stated that if he deteriorated to the point where he couldn't consciously assist in his medical care that he would want to be made comfort care -prognosis guarded P: -guarded prognosis, soboba 40% -on levophed milrinone -nephrology consult -monitor UOP, cvp -amio started per cardio, BB/lasix held for hypotension -would consider adding ACEI/Aldactone if BP/renal fxn allow if pt improves -SSI -avoid nephrotoxic -PT/OT -f/u with cardiology outpt -f/u with nephrology -ppx: Eliquis Code status: DNR/DNI Time Spent With Patient Time: Total time spent is greater than 50% in coordination of care (as documented) at patient's floor/unit and/or counseling patient: Critical Care Time: Yes Total Critical Care Time: 50 QUALITY VTE Deep Vein Thrombosis/Pulmonary Embolism Present on Admission: No
[2021-12-16] MEDS ORDERED: FUROSEMIDE 20 MG TABLET PO SCH (09:00)
[2021-12-16] MEDS ORDERED: LACTATED RINGERS 250 ML IV ONE (11:45)
[2021-12-16] MEDS: AMIODARONE HCL 200 MG TABLET PO SCH ×3 (12:38→17:59)
[2021-12-16] MEDS: FUROSEMIDE 20 MG TABLET PO SCH (12:43)
[2021-12-16] MEDS: APIXABAN 5 MG TABLET PO SCH ×2 (12:43→20:04)
[2021-12-16] MEDS: NICOTINE 7 MG PATCH TOPICAL SCH (12:45)
--- NOTE | 2021-12-16 13:58 | Nephrology Consult Note ---
HPI Data of Consult Consult date: 12/23/21 Primary Care Provider: PCP No Consult Narrative Patient Information: Note initiated : 12/16/21 at 1:53 pm Service Date, if different from initiated Date: [] Patient: Vinicio Knight 76 y/o M admitted on 12/12/21 for Weakness, Failure to thrive/ A-Fib and leg wound. Chief Complaint: [CHF, CKD/ARF, low BP] Chief complaint: Cardiorenal syndrome Reason for consult: Help with above managemen cc:: tCC: Delbert Briseno MD 76 yr old male admitted 4 days ago with DM complicated by CKD 3, PVD with Right BKA, Systolic cardiomyoapthy with LVEF 20% complicated by AI/ and MR in the setting of atrial fibriliation. He apparently lives alone and there are no family contacts listed. He has an impossible physiologic state =>1. afib decreases LV filling due to loss of atrial kick and and RVR leads to less time for the LV to empty. 2. rLVEF leads to decreased renal perfusion and worsening GFR. 3. Atempts to diurese are thwarted by renal hypoperfusion and a sodium avid state worsening the CHF. 4. Finally. Inotropic agents like milrinone and dobutamine will speed the heart worsening flow accross the stemitic aortic valve and preseeor will result in more mitral reguritation. In my opinion this a a sysiphyian effort but the patient mental status is c urrenly such that he cannort understand the gravirty of the situation nore my opinion that this is not a survivible case. Serum Creatinine Renal U/S IMPRESSION: 1. Multiple cysts throughout both kidneys. No solid lesions. 2. Mild atrophy of the right kidney. Left kidney normal. There is moderate calcific plaque in the right renal artery on CT. Suspect patient may have renal artery stenosis. CT was performed without contrast, thus this cannot be diagnosed with certainty on that exam. 3. Mildly hyperechoic kidneys compatible with medical renal disease and advanced age CXR 12/15/2021 Vital Signs Temp Pulse Pulse Pulse Resp BP BP 12/16/21 14:00 85 97/68 12/16/21 13:30 86 11 L 92/60 12/16/21 13:01 92 H 24 H 100/73 12/16/21 12:32 91 H 27 H 121/105 12/16/21 12:01 36.4 C 87 31 H 112/64 12/16/21 11:55 86 16 80/70 12/16/21 11:31 92 H 34 H 83/56 12/16/21 11:00 87 16 90/65 12/16/21 10:30 90 32 H 98/62 12/16/21 10:04 90 26 H 100/75 12/16/21 10:00 89 28 H 92/52 12/16/21 09:30 0 L 91/45 12/16/21 08:00 12/16/21 09:00 33 H 107/57 12/16/21 08:30 0 L 92/72 12/16/21 08:00 36.2 C 26 H 92/72 12/16/21 06:52 20 99/64 12/16/21 06:45 3 L 122/112 12/16/21 06:28 20 90/75 12/16/21 06:21 33 H 12/16/21 06:00 24 H 90/75 12/16/21 02:00 29 H 12/16/21 05:00 30 H 109/62 12/16/21 03:00 78 28 H 98/52 12/16/21 04:00 36.4 C 93 H 26 H 95/75 12/15/21 20:00 30 H 12/16/21 02:00 78 24 H 98/52 12/16/21 02:00 78 24 H 128/88 12/16/21 01:00 77 27 H 94/73 12/16/21 00:30 77 26 H 121/90 12/16/21 00:00 36.6 C 77 28 H 110/96 12/15/21 21:00 71 30 H 71/48 12/15/21 21:15 65 58/45 12/15/21 21:00 106 H 30 H 58/41 12/15/21 20:40 101 H 30 H 84/48 12/15/21 20:20 105 H 28 H 67/54 12/15/21 20:00 36.7 C 109 H 27 H 12/16/21 00:16 23 H 120/104 12/16/21 00:04 24 H 12/16/21 00:04 36.6 C 12/16/21 00:03 117 H 30 H 110/96 12/16/21 00:00 143 H 16 12/15/21 23:52 82 12 107/84 12/15/21 23:50 22 12/15/21 23:47 15 82/42 12/15/21 23:45 58 L 22 12/15/21 23:40 28 H 12/15/21 23:35 12 12/15/21 23:32 31 H 93/68 12/15/21 23:31 27 H 93/68 12/15/21 23:30 28 H 95/52 12/15/21 23:25 15 95/52 12/15/21 23:20 30 H 12/15/21 23:17 98 H 22 47/36 12/15/21 23:15 19 12/15/21 23:10 48 L 28 H 12/15/21 23:05 15 12/15/21 23:02 37 L 19 71/44 12/15/21 23:00 20 12/15/21 22:55 22 12/15/21 22:50 24 H 12/15/21 22:48 88 17 102/88 12/15/21 22:45 20 12/15/21 22:41 30 H 12/15/21 22:40 15 83/63 12/15/21 22:39 22 102/58 12/15/21 22:36 25 H 12/15/21 22:35 86 22 131/85 12/15/21 22:31 22 93/58 12/15/21 22:30 31 H 93/58 12/15/21 22:29 25 H 92/72 12/15/21 22:26 24 H 92/80 12/15/21 22:25 24 H 12/15/21 22:23 28 H 122/107 12/15/21 22:20 18 12/15/21 22:19 26 H 77/57 12/15/21 22:16 29 H 76/56 12/15/21 22:15 30 L 27 H 12/15/21 22:13 21 69/54 12/15/21 22:12 74 29 H 67/37 12/15/21 22:10 89 25 H 12/15/21 22:08 24 H 155/141 12/15/21 22:06 19 12/15/21 22:05 30 H 125/107 12/15/21 22:02 26 H 81/53 12/15/21 22:00 25 H 81/53 12/15/21 21:58 124/102 12/15/21 21:55 79 28 H 12/15/21 21:51 27 H 12/15/21 21:50 21 66/49 12/15/21 21:47 25 H 71/48 12/15/21 21:45 71 28 H 71/47 12/15/21 21:44 24 H 119/102 12/15/21 20:00 36.7 C 117 H 28 H 84/48 12/15/21 17:53 19 109/51 12/15/21 17:22 22 84/61 12/15/21 17:08 30 H 69/57 12/15/21 16:35 88 24 H 85/52 12/15/21 16:01 103 H 24 H 76/63 12/15/21 15:53 30 H 81/63 12/15/21 15:52 31 H 81/68 12/15/21 15:51 36 H 84/65 Pulse Ox O2 Del Method O2 Flow Rate 12/16/21 14:00 93 12/16/21 13:30 92 12/16/21 13:01 92 Oxymask 6 12/16/21 12:32 92 Oxymask 6 12/16/21 12:01 92 12/16/21 11:55 92 12/16/21 11:31 88 L 12/16/21 11:00 91 12/16/21 10:30 93 12/16/21 10:04 91 12/16/21 10:00 95 12/16/21 09:30 12/16/21 08:00 99 Oxymask 7 12/16/21 09:00 96 12/16/21 08:30 12/16/21 08:00 99 Oxymask 7 12/16/21 06:52 12/16/21 06:45 12/16/21 06:28 12/16/21 06:21 12/16/21 06:00 90 12/16/21 02:00 96 Oxymask 7 12/16/21 05:00 94 Oxymask 7 12/16/21 03:00 97 Oxymask 4 12/16/21 04:00 98 Oxymask 6 12/15/21 20:00 98 Oxymask 4 12/16/21 02:00 12/16/21 02:00 4 L Oxymask 12/16/21 01:00 12/16/21 00:30 12/16/21 00:00 97 Oxymask 4 12/15/21 21:00 12/15/21 21:15 12/15/21 21:00 12/15/21 20:40 Oxymask 4 12/15/21 20:20 12/15/21 20:00 98 Oxymask 4 12/16/21 00:16 12/16/21 00:04 12/16/21 00:04 12/16/21 00:03 62 L 12/16/21 00:00 58 L 12/15/21 23:52 70 L 12/15/21 23:50 12/15/21 23:47 98 Oxymask 4 12/15/21 23:45 84 L 12/15/21 23:40 12/15/21 23:35 12/15/21 23:32 95 Oxymask 4 12/15/21 23:31 12/15/21 23:30 12/15/21 23:25 96 Oxymask 4 12/15/21 23:20 12/15/21 23:17 62 L 12/15/21 23:15 12/15/21 23:10 56 L 12/15/21 23:05 12/15/21 23:02 85 L 12/15/21 23:00 12/15/21 22:55 12/15/21 22:50 12/15/21 22:48 57 L 12/15/21 22:45 12/15/21 22:41 12/15/21 22:40 12/15/21 22:39 12/15/21 22:36 12/15/21 22:35 78 L 12/15/21 22:31 12/15/21 22:30 12/15/21 22:29 12/15/21 22:26 12/15/21 22:25 12/15/21 22:23 12/15/21 22:20 12/15/21 22:19 12/15/21 22:16 12/15/21 22:15 69 L 12/15/21 22:13 12/15/21 22:12 81 L 12/15/21 22:10 82 L 12/15/21 22:08 12/15/21 22:06 12/15/21 22:05 12/15/21 22:02 12/15/21 22:00 12/15/21 21:58 12/15/21 21:55 76 L 12/15/21 21:51 12/15/21 21:50 12/15/21 21:47 12/15/21 21:45 67 L Oxymask 4 12/15/21 21:44 12/15/21 20:00 98 Oxymask 4 12/15/21 17:53 12/15/21 17:22 12/15/21 17:08 12/15/21 16:35 82 L 12/15/21 16:01 81 L 12/15/21 15:53 12/15/21 15:52 12/15/21 15:51 Intake and Output 12/16/21 12/16/21 12/16/21 05:59 13:59 21:59 Intake Total 150 577 Output Total 0 Balance 150 577 Intake: IV 50 337 Lactated Ringers 250 ml @ Wide 250 Open IV [facility] Rx#:[id number] Vasostrict 20 Unit In Dextrose 87 5% in Water 99 ml @ 0.03 UNIT/ MIN 9 mls/hr IV Q17H [facility] Rx#: [id number] Oral 100 240 Output: Urine Catheter Amount 0 Void Amount 0 Other: Urine Appearance Clear Uretheral ([place]) Clear Clear Urine Color Dark Yellow Uretheral ([place]) Yellow Dark Yellow Blood Tinged Stool Size Small Stool Color Brown Stool Consistency Soft # Bowel Movements 1 # of times incontinent of 1 Bowels Medications Acetaminophen (Acetaminophen 325 Mg Tablet) 650 mg PO Q6HP PRN; Protocol PRN Reason: Per Pain Protocol/Fever > 101 Albuterol/Ipratropium (Ipratropium/Albuterol 3 Ml Ampul.Neb) 3 ml NEB Q4HRT PRN PRN Reason: Wheezing Amiodarone HCl (Amiodarone Hcl 200 Mg Tablet) [facility] Last Admin: 12/16/21 12:38 Dose: Not Given Apixaban (Apixaban 5 Mg Tablet) 5 mg PO BID [facility] Last Admin: 12/16/21 12:43 Dose: Not Given Atorvastatin Calcium (Atorvastatin 40 Mg Tablet) 40 mg PO HS [facility] Last Admin: 12/15/21 19:52 Dose: 40 mg Dextrose (Dextrose 50% 50 Ml Vial) 0 ml IV UD PRN PRN Reason: Per Sliding Scale Diagnostic Test (Pha) (Accu-Chek 1 Each Strip) [address] [facility] Last Admin: 12/16/21 12:45 Dose: 1 each Furosemide (Furosemide 20 Mg/2 Ml Vial) 20 mg IV ONCE PRN PRN Reason: Shortness Of Breath Or Wheezing Furosemide (Furosemide 20 Mg Tablet) 20 mg PO DAILY [facility] Last Admin: 12/16/21 12:43 Dose: Not Given Glucose (Dextrose 31 Gm Oral.Susp) 15 gm PO PRN PRN PRN Reason: Hypoglycemia Sodium Chloride (Sodium Chloride 0.9%) 250 mls @ 20 mls/hr IV .[id number] [facility] Last Admin: 12/16/21 12:45 Dose: Not Given Norepinephrine Bitartrate 16 (mg/ Sodium Chloride) 250 mls @ 9.375 mls/hr IV Q24H [facility]; Protocol Last Admin: 12/16/21 14:19 Dose: 16 mcg/min, 15 mls/hr Sodium Chloride (Sodium Chloride 0.9%) 250 mls @ 20 mls/hr IV .[id number] [facility] Last Admin: 12/16/21 09:01 Dose: Not Given Milrinone Lactate/Dextrose 20 (mg/ Premix) 100 mls @ 2.475 mls/hr IV .Q24H [facility]; Protocol Last Admin: 12/16/21 08:13 Dose: 0.125 mcg/kg/min, 2.475 mls/hr Ibuprofen (Ibuprofen 600 Mg Tablet) 600 mg PO QIDP PRN; Protocol PRN Reason: Per Pain Protocol/Fever > 101 Insulin Human Lispro (Insulin Lispro 1 Unit/0.01 Ml Unit) [address] [facility]; Protocol Last Admin: 12/16/21 12:46 Dose: Not Given Nicotine (Nicotine 7 Mg Patch) 7 mg TOPICAL DAILY@1000 [facility] Last Admin: 12/16/21 12:45 Dose: Not Given Ondansetron HCl (Ondansetron 4 Mg/2 Ml Vial) 4 mg IV Q6HP PRN PRN Reason: Nausea And Vomiting Oxycodone HCl (Oxycodone Hcl 5 Mg Tablet) 5 mg PO Q4HP PRN; Protocol PRN Reason: Per Pain Protocol Sodium Chloride (0.9 % Sodium Chloride 10 Ml Syringe) 10 ml IV Q8 [facility] Last Admin: 12/16/21 14:21 Dose: 10 ml Sodium Chloride (0.9 % Sodium Chloride 10 Ml Syringe) 10 ml IV Q12 [facility] Last Admin: 12/16/21 12:43 Dose: 10 ml Sodium Chloride (0.9 % Sodium Chloride 10 Ml Syringe) 10 ml IV UD PRN PRN Reason: DRESSING CHANGES Trazodone HCl (Trazodone Hcl 50 Mg Tablet) 25 mg PO HSP PRN PRN Reason: Insomnia Last Admin: 12/15/21 19:52 Dose: 25 mg Review of Systems ROS unobtainable: due to mental status All systems: reviewed and no additional remarkable complaints except as stated Review of systems: Wasted, responding to noxious stimuli Chart reviewed. PFSH PFSH All Active Problems (Updated 12/16/21 @ 14:54 by Saeid Torres MD) Acute on chronic systolic ACC/AHA stage C congestive heart failure (Acute) Cardiorenal syndrome with renal failure (Acute) Renal failure (ARF), acute on chronic (Chronic) Atrial fibrillation (Acute) Anemia, macrocytic (Acute) Diabetic nephropathy associated with type 2 diabetes mellitus (Acute) T2DM (type 2 diabetes mellitus) (Acute) Right above-knee amputee (Acute) Diarrhea (Acute) PAD (peripheral artery disease) (Acute) Diabetic polyneuropathy associated with type 2 diabetes mellitus (Acute) Aortic stenosis (Acute) Cardiomyopathy (Acute) Chronic renal insufficiency, stage III (moderate) (Acute) BPH (benign prostatic hyperplasia) (Acute) Aortic regurgitation (Acute) Mitral regurgitation (Acute) Pleural effusion (Acute) Atrial fibrillation (Acute) Medical History (Updated 12/16/21 @ 14:54 by Saeid Torres MD) Renal failure (ARF), acute on chronic Social History smoking status: Former smoker MEDS/ALLERGIES Home Medications and Allergies Home Medications Medication Instructions Recorded Confirmed Type Adult Multi plus [place]-3 600 mg PO QDAY 12/12/21 12/12/21 History Adults Multivitamin 1 tab PO QDAY 12/12/21 12/12/21 History ascorbate calcium (vitamin C) 500 500 mg PO QDAY 12/12/21 12/12/21 History mg tablet aspirin 650 mg PO QHS 12/12/21 12/12/21 History biotin 500 mcg capsule 500 mcg PO QDAY 12/12/21 12/12/21 History calcium carbonate 600 mg-vitamin 1 tab PO QDAY 12/12/21 12/12/21 History D3 5 mcg (200 unit) tablet vit C-vit K-vaodgo-admpnehk-omega 1 cap PO QDAY 12/12/21 12/12/21 History 3 100 mg-15 unit-2 mg-100 mg capsule Allergies Allergy/AdvReac Type Severity Reaction Status Date / Time No Known Drug Allergies Allergy Verified 12/12/21 10:14 Physical Examination Vital Signs Vital signs: Temp Pulse Resp BP Pulse Ox O2 Del Method O2 Flow Rate 36.4 C 92 H 24 H 100/73 92 6 12/16/21 12:01 12/16/21 13:01 12/16/21 13:01 12/16/21 13:01 12/16/21 13:01 12/16/21 13:01 12/16/21 13:01 General Appearance General appearance: chronically ill, fatigue and frail EENT EENT: PERRL and mucous membranes dry Neck Neck: no JVD and no carotid bruit Respiratory Respiratory: rhonchi Cardiovascular Cardiology: mid-systolic murmur (1/6 FLORES), no rub, S3 gallop (palpable at left axillary line), edema and irregular rhythm Gastrointestinal Gastrointestinal: normoactive bowel sounds Integumentary Integumentary: ecchymotic, decubiti and skin tear Neurologic Neurologic: confused (arousable to noxious stimuli only) and disoriented Musculoskeletal Musculoskeletal: deformities (muscle wasting, weak, Right BKA) Psychiatric Psychiatric: agitated (when aroused) Results Lab Results Result Diagrams: 12/15/21 17:14 12/16/21 05:38 Lab results: Most recent lab results Calcium 8.0 mg/dL (8.6-10.4) L 12/16/21 05:38 Phosphorus 5.5 mg/dL (2.5-4.5) H 12/16/21 05:38 Magnesium 2.0 mg/dL (1.6-2.5) 12/16/21 05:38 A/P Assessment and plan (1) Renal failure (ARF), acute on chronic: Assessment and plan: CKD 4 as we have limited pre-hospital data. Lack of proteinuria argues against diabetes, HTN and vascular disease much more likely. 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 Plan: There is nothing that can be done except make this patient comfortable. Dialysis will decrease BP, worsen LVEF and speed He is cachetic, hypoperfusing vital organs with hypotension, decreased LVEF and /MR...there is no reversing this downward spiral Status: Chronic (2) Cardiorenal syndrome with renal failure: Assessment and plan: Hypotension, decreased LVEF, and MR is the cause of oligoanuric ARF on CKD 4, As outlined above, there is no treatment for this given his underlying wasted state. Status: Acute (3) Acute on chronic systolic ACC/AHA stage C congestive heart failure: Assessment and plan: In my opinion, this is endstage Valvular heart disease with rLVEF and cardiorenal syndrome that cannot be reversed as outline in the HPI Status: Acute Plan He has an impossible physiologic state =>1. afib decreases LV filling due to loss of atrial kick and and RVR leads to less time for the LV to empty. 2. rLVEF leads to decreased renal perfusion and worsening GFR. 3. Attempts to diurese are thwarted by renal hypoperfusion and a sodium avid state worsening the CHF. 4. Finally. Inotropic agents like milrinone and dobutamine will speed the heart worsening flow across the stemitic aortic valve and preseor will result in more mitral reguritation. In a moment of lucency, he woke up and I explained his situation and told him ventilation or dialysis would not help, In the presence of the nurse he verbalized agreement with this and understands he is not expected to survive. Time Spent With Patient Time: Total time spent is greater than 50% in coordination of care (as documented) at patient's floor/unit and/or counseling patient:
[2021-12-16] MEDS ORDERED: LACTATED RINGERS 250 ML IV SCH ×2 (14:58→15:44)
[2021-12-16] MEDS ORDERED: LACTATED RINGERS 500 ML IV ONE (17:13)
[2021-12-16] MEDS ORDERED: SODIUM BICARBONATE 50 MEQ/50 ML VIAL IV SCH ×2 (18:45→21:23)
[2021-12-16] MEDS ORDERED: AMIODARONE 150 MG in DEXTROSE 5% IN WATER 50 ML IV SCH (18:50)
[2021-12-16] MEDS ORDERED: ALBUMIN HUMAN 12.5 GM/50 ML BAG IV SCH (19:00)
[2021-12-16] MEDS ORDERED: AMIODARONE 150 MG/3 ML VIAL IV ONE (19:03)
[2021-12-16] MEDS: ATORVASTATIN 40 MG TABLET PO SCH (20:05)
[2021-12-16] MEDS ORDERED: SODIUM BICARBONATE 50 MEQ/50 ML VIAL IV ONE (20:49)
[2021-12-16] MEDS ORDERED: LACTATED RINGERS 1,000 ML IV ONE (20:57)
[2021-12-16] MEDS ORDERED: LACTATED RINGERS 1,000 ML IV SCH ×2 (21:00→22:15)
[2021-12-16] MEDS: LACTATED RINGERS 250 ML IV PRN (22:27)
[2021-12-17] MEDS: LACTATED RINGERS 250 ML IV PRN ×2 (00:07→01:37)
[2021-12-17] MEDS: 0.9 % SODIUM CHLORIDE 10 ML SYRINGE IV SCH (02:10)
[2021-12-17] MEDS: 0.9 % SODIUM CHLORIDE 250 ML IV SCH (02:11)
[2021-12-17] MEDS ORDERED: 0.9 % SODIUM CHLORIDE 10 ML SYRINGE IV SCH (06:00)
--- NOTE | 2021-12-17 07:44 | Death Note ---
Discharge Sum: Prov Provider Patient information: Note initiated : 12/17/21 at 7:40 am Service Date, if different from initiated Date: [] Patient: Vinicio Knight 76 y/o M admitted on 12/12/21 for Weakness, Failure to thrive/ A-Fib and leg wound. Chief Complaint: [] Primary care physician: PCP No Consults: 12/12/21 Consult to Physician [CONS] Stat Comment: Consulting Provider: Carolina Botello Reason For Exam: Physician to Consult Consult to Physician [CONS] Stat Comment: Consulting Provider: Delbert Briseno Reason For Exam: Physician to Consult 12/13/21 15:11 Consult to Physician [CONS] Routine Comment: Consulting Provider: Iglesia Arevalo Reason For Exam: Physician to Consult 12/16/21 08:25 Consult to Physician [CONS] Routine Comment: Consulting Provider: Saeid Torres Reason For Exam: Physician to Consult 12/17/21 06:39 Consult to Physician [CONS] Routine Comment: Consulting Provider: Irene Reason For Exam: Physician to Consult Discharge Sum: Diag Contributing Factors (1) Renal failure (ARF), acute on chronic: (2) Cardiorenal syndrome with renal failure: (3) Acute on chronic systolic ACC/AHA stage C congestive heart failure: Discharge Sum: Summary Date and Time Date of admission: 12/12/21 17:03 Date of : 12/17/21 Time of : 03:06 Summary Details: Principal diagnosis: atrial fibrillation Interval history: Mr. Knight is a 76 year old M history of type 2 diabetes, right-sided AKA, presenting with weakness. He has been having diarrhea for 3 days and earlier today at around 10 AM when he was trying to get up from the wheelchair, the wheelchair tipped to the cushion and he felt to the ground. He was unable to get up from the ground. He did not pass out no loss of consciousness. Denies any chest pain or palpitations or shortness of breath. He called EMS to be sent to our ED for further evaluation and treatments. Vital sign significant for tachycardia with heart rate in the 130s, and atrial fibrillation's. Soft blood pressure as low as 83/68 mmHg. Labs significant for a mildly elevated WBC of 11.1. H&H 11.1 and 36.1, respectively. Serum creatinine level 2.5 unknown baseline. Glucose level 145. Status post IV Lopressor and IV Cardizem pushes in the ED, respectively. Current heart rate lingering between 80s and 100s beats per minute. 12/13: With no major overnight events. Patient is currently rate controlled. Patient denies any chest pain palpitations or shortness of breath. He is comfortable a nd denies any pain. Convert Cardizem to metoprolol tartrate 12.5 p.o. every 6 hours. Continue Eliquis. Add Lipitor. Pending echocardiogram report. Pending physical therapy and Occupational Therapy for placement planning. Will need outpatient cardiology follow-up. 12/14: With no major overnight events. Patient is currently rate controlled. Patient denies any chest pain palpitations or shortness of breath. He is comfortable and denies any pain. Holding Metoprolol tartrate for this morning given soft blood pressure. Continue Eliquis/Lipitor. Echocardiogram showing reduced systolic function with LVEF 20%. Pending physical therapy and Occupational Therapy for placement planning. [facility] need [facility] Patient denies any new complaints overnight events. Patient seen by cardiology today. Amiodarone 200 twice daily for 1 month then once daily thereafter, metoprolol 25 twice daily Lasix 20 daily consider lisinopril if renal function continues to improve. Metabolic acidosis on labs. Creatinine 2.6 it was 2.5 yesterday. Hyperphosphatemia. Chest x-ray with left midlung and lower lobe infiltrate consolidation. Patient has had soft blood pressures since admission and at times hypotensive, he became hypotensive this afternoon. Patient was asymptomatic. However stat lactate elevated lactic acidosis. Patient was given fluid bolus 250 lactated Ringer and later repeated with resolution of hypotension. Then in the early evening patient went into A. fib RVR and was given IV Lopressor which dropped blood pressure again. Patient subsequently required Levophed and transferred to the ICU. All beta-blockers discontinued. Also given digoxin this afternoon with the first event, given his reduced LV fxn. monitor closely in icu, uop, vitals. cont amio. Review of Systems: Mild chronic dyspnea. Denies headache/fever/chills/nausea/vomiting/chest or abdominal pain/cough/diarrhea. Otherwise see above. I discussed with the patient this evening his current state of health and recent events today which are concerning. Discussed with him the structural findings of his heart and how poor shape his heart is in that put him at high risk for sudden cardiac . EF of 20% global hypokinesis and severe hypokinesis of the septum apex mid-distal inferior wall. Right ventricular systolic function mildly reduced, moderate to severe mitral regurgitation, moderate aortic regurgitation. I asked him what he he would want us to do if his status continued to deteriorate to the point where he was unable to make decisions. He said if it came to that he would want to be hospice. Talked with him regarding comfort care status -he said if he deteriorated that he would just want to be made comfortable with no aggressive or heroic measures. Nurse was present for this discussion. We will continue current measures. He is currently on Levophed with vasopressin adjunct. Calderon catheter placed for accurate I's and O's and patient is ICU status. Will continue to aggressively support; however, if he further deteriorates to the point where he is unable to consciously participate in his care then we will transition to comfort care only. IVF boluses 250cc at a time. 12/16 Tried to call family to give an update but the only contact listed on his record is a sister named Mulu but the phone number is to the patient's phone. Patient on Levophed and milrinone. Lactic acidosis secondary to cardiogenic shock. Scant urine output since last night. Patient drowsy but awakens and responds appropriately. He reconfirmed that if he has lost consciousness or became altered in a way that he could not be involved in his care that he would want to be made comfort care. Renal function worsened and mildly elevated potassium. Nephrology consulted. Shock liver. Multiorgan dysfunction 12/17 During the nursing specialist hours patient's started to further deteriorate and as per previous wishes was transitioned to comfort care only. Patient at 0306. A; *Cardiogenic Shock: *Multiorgan dysfunction: *Lactic acidosis: 2/2 above *chronic Atrial fibrillation rvr: -[id number] = 4, Eliquis -echo LVEF 20% *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 (mod MR/AR): *Peripheral arterial disease: on Lipitor/Eliquis *Pleural effusion: transudate *JASWINDER on likely CKD w/renal failure, likely ATN: 2/2 cardiorenal component *Anemia, chronic associated with chronic kidney disease: *Metabolic acidosis: *Shock liver/ischemic hepatitis: *T2DM w/polyneuropathy & nephropathy: -HgA1c 5.9 *Diarrhea: resolved *Goals of care: no aggressive treatment, pt stated that if he deteriorated to the point where he couldn't consciously assist in his medical care that he would want to be made comfort care -prognosis guarded Additional Data Attending physician: Delbert Briseno MD
--- NOTE | 2021-12-17 08:14 | EKG ---
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 Measurements Intervals [place] Rate: 121 P: [place]: QRS: -44 QRSD: 96 T: 108 QT: 296 QTc: 420 Interpretive Statements Atrial fibrillation, rate 121 LEFT ANTERIOR FASCICULAR BLOCK Lateral st abnormalities; consider ischemia vs. digoxin effect Electronically Signed On 12-17-2021 8:14:37 PDT by Guanako Figueroa M.D. /store/M0/[id number]
[2021-12-19 06:56] LABS: Monocytes,Pleural Fluid 9 %
== END 2021-12-17 07:52 | disposition expired | DRG 682 ==
LOC: ED 10:13 → ICU 17:03
PROVIDERS: ADMIT Internal Medicine; ATTEND Internal Medicine